=== PATIENT | male | born 1935 | race Caucasian/White ===

== ENCOUNTER 2016-06-20 13:07 | Inpatient (IN) | payer MEDICARE ==
[2016-06-20] VITALS (10 sets, daily range): BP systolic 154–214; BP diastolic 64–95; PULSE 31–54; RESP 15–18; TEMP 97.7–98.2; O2SAT 95–99
[~2016-06-20] VITALS: Ht 180.3 cm; Wt 76.8 kg
[~2016-06-20 13:07] MED LIST: APIX5TAB PO; BACL10TA PO; LIPI10TA PO; LORTA5 PO; MOEX15TA2 PO; PRED20 PO; TERA10CA3 PO
--- NOTE | 2016-06-20 13:10 | PD ---
HPI . near syncope Chief Complaint: dizzness/lightheadedness Time Seen by Provider: 13:10 Travel History International Travel<30 days: No Contact w/Intl Traveler<30days: No Traveled to known affect area: No History of Present Illness HPI 80 year old male with history of hypertension, hyperlipidemia and coronary artery bypass graft in the past here after having a near syncopal episode while walking [place] usual [place] at the beach. Apparently patient was walking and felt sort of dizzy and lightheaded therefore he decided to sit down. Patient denies any loss of consciousness or fall. Patient says he then tried to get back up and was still dizzy, therefore decided to call 911. Unfortunately took about an hour and 20 minutes before the paramedics actually arrived and brought him into the emergency department. He says that once the paramedics told him he complained of double vision, however he does not recall that. He tells me that he does not have any double vision or vision deficits. He is somewhat of a snowbird. He lives in [place] for about 4 months out of the year and then spends most of his time here in [place], while also traveling to [place] occasionally. All of his primary care providers and shot hole shooter are in [place]. He visits his shot hole shooter twice a year. He does have some significant bradycardia on examination, but patient tells me that his heart rate is always in the 30s. Monitor is reading A. fib. Patient denies any arrhythmia in the past. At time of examination patient denies any chest pain, nausea, vomiting, shortness of breath, diaphoresis, abdominal pain, joint pain, weakness or fatigue. He has no complaints and tells me he feels well. He is concerned that he may require pacemaker as his shot hole shooter told him, 'If you ever land yourself in the hospital, you won't leave without a pacemaker." PFSH Past Medical History Heart Rhythm Problems: Yes High Cholesterol: Yes Diminished Hearing: No Hypertension: Yes Past Surgical History Coronary Artery Bypass Graft: Yes (X4) Social History Alcohol Use: Yes (OCC) Tobacco Use: No Substance Use: No Allergies-Medications (Allergen,Severity, Reaction): Coded Allergies: No Known Allergies (Unverified , 07/06/14) Reported Meds & Prescriptions Reported Meds & Active Scripts Active Reported Centravites 50 Plus (Multiple Vitamins W/ Minerals) 1 Tab Tab Amlodipine (Amlodipine Besylate) 5 Mg Tab 5 Mg PO DAILY Lipitor (Atorvastatin Calcium) 20 Mg Tab 20 Mg PO HS Terazosin (Terazosin HCl) 10 Mg Cap 10 Mg PO HS Eliquis (Apixaban) 5 Mg Tab 5 Mg PO DAILY Review of Systems General / Constitutional: No: Fever Eyes: No: Visual changes HENT: No: Headaches Cardiovascular: No: Chest Pain or Discomfort Respiratory: No: Shortness of Breath Gastrointestinal: No: Abdominal Pain Genitourinary: No: Dysuria Musculoskeletal: No: Pain Skin: No Rash Neurologic: No: Weakness Psychiatric: No: Depression Endocrine: No: Polydipsia Hematologic/Lymphatic: No: Easy Bruising Physical Exam Narrative GENERAL: AAO x 3, no acute distress, Well-nourished, well-developed patient. SKIN: Warm and dry. No visible rashes or bruising. HEAD: Normocephalic and atraumatic. EYES: No scleral icterus. No injection or drainage. EOM intact, PERRLA ENT: No nasal drainage noted. Mucous membranes pink. Airway patent. NECK: Supple, trachea midline. No JVD. CARDIOVASCULAR: Significant bradycardia on examination. Audible heart rate in the 30s 32 range. RESPIRATORY: Breath sounds equal bilaterally. No accessory muscle use. No rhonchi or rales. GASTROINTESTINAL: Abdomen soft, non-tender, nondistended. EXTREMITIES: No cyanosis or edema. NEURO: CN 2-12 intact, postal clerk strength normal bilaterally, muscle strength is equal 5/5 UE and LE, speech is normal without any aphasia, BACK: Nontender without obvious deformity. No CVA tenderness. PSYCH: AAO x 3, normal affect. Data Data Last Documented VS Vital Signs Date Time Temp Pulse Resp B/P Pulse Ox O2 Delivery O2 Flow Rate FiO2 06/20/16 13:13 31 97 Room Air 06/20/16 13:09 98.2 17 154/67 Orders Electrocardiogram (06/20/16 ) Complete Blood Count With Diff (06/20/16 13:24) Comprehensive Metabolic Panel (06/20/16 13:24) Creatine Kinase (Cpk) (06/20/16 13:24) Prothrombin Time / Inr (Pt) (06/20/16 13:24) Act Partial Throm Time (Ptt) (06/20/16 13:24) Troponin I (06/20/16 13:24) Urinalysis - C+S If Indicated (06/20/16 13:24) Ct Brain W/O Iv Contrast(Rout) (06/20/16 13:24) Ckmb (Isoenzyme) Profile (06/20/16 13:24) Magnesium (Mg) (06/20/16 13:24) Chest, Single Ap (06/20/16 13:24) Ecg Monitoring (06/20/16 13:24) Bilateral Bp Monitoring (06/20/16 13:24) Iv Access Insert/Monitor (06/20/16 13:24) Oximetry (06/20/16 13:24) Oxygen Administration (06/20/16 13:24) Sodium Chloride 0.9% Flush (Ns Flush) (06/20/16 13:30) CKMB (06/20/16 14:00) CKMB% (06/20/16 14:00) Admit Order (Ed Use Only) (06/20/16 16:13) Place In Observation (06/20/16 ) Diet Regular Basic (06/20/16 Dinner) Activity Bed Rest With Brp (06/20/16 16:14) Vital Signs (Adult) JED.Q4H (06/20/16 16:14) Labs Laboratory Tests Test 06/20/16 14:00 White Blood Count 9.5 TH/MM3 Red Blood Count 4.09 MIL/MM3 Hemoglobin 12.9 GM/DL Hematocrit 39.2 % Mean Corpuscular Volume 96.0 FL Mean Corpuscular Hemoglobin 31.7 PG Mean Corpuscular Hemoglobin 33.0 % Concent Red Cell Distribution Width 14.0 % Platelet Count 98 TH/MM3 Mean Platelet Volume 11.0 FL Neutrophils (%) (Auto) 86.0 % Lymphocytes (%) (Auto) 7.7 % Monocytes (%) (Auto) 5.0 % Eosinophils (%) (Auto) 1.1 % Basophils (%) (Auto) 0.2 % Neutrophils # (Auto) 8.2 TH/MM3 Lymphocytes # (Auto) 0.7 TH/MM3 Monocytes # (Auto) 0.5 TH/MM3 Eosinophils # (Auto) 0.1 TH/MM3 Basophils # (Auto) 0.0 TH/MM3 CBC Comment AUTO DIFF Differential Comment AUTO DIFF CONFIRMED Platelet Estimate LOW Platelet Morphology Comment NORMAL Prothrombin Time 11.3 SEC Prothromb Time International 1.0 RATIO Ratio Activated Partial 24.7 SEC Thromboplast Time Sodium Level 141 MEQ/L Potassium Level 4.3 MEQ/L Chloride Level 106 MEQ/L Carbon Dioxide Level 27.6 MEQ/L Anion Gap 7 MEQ/L Blood Urea Nitrogen 23 MG/DL Creatinine 1.23 MG/DL Estimat Glomerular Filtration 57 ML/MIN Rate Random Glucose 96 MG/DL Calcium Level 9.1 MG/DL Magnesium Level 2.4 MG/DL Total Bilirubin 0.7 MG/DL Aspartate Amino Transf 23 U/L (AST/SGOT) Alanine Aminotransferase 31 U/L (ALT/SGPT) Alkaline Phosphatase 99 U/L Total Creatine Kinase 238 U/L Creatine Kinase MB 2.3 NG/ML Troponin I 0.03 NG/ML Total Protein 7.0 GM/DL Albumin 4.0 GM/DL [facility] Medical Decision Making Medical Screen Exam Complete: Yes Emergency Medical Condition: Yes Medical Record Reviewed: Yes Differential Diagnosis symptomatic bradycardia, a fib, sick sinus syndrome, dehydration, syncopal episode Narrative Course 80 year old male with history of hypertension, hyperlipidemia and coronary artery bypass graft in the past here after having a near syncopal episode while walking [place] usual [place] miles at the beach. Apparently patient was walking and felt sort of dizzy and lightheaded therefore he decided to sit down. Patient denies any loss of consciousness or fall. Patient says he then tried to get back up and was still dizzy, therefore decided to call 911. Unfortunately took about an hour and 20 minutes before the paramedics actually arrived and brought him into the emergency department. He says that once the paramedics told him he complained of double vision, however he does not recall that. He tells me that he does not have any double vision or vision deficits. He is somewhat of a snowbird. He lives in [place] for about 4 months out of the year and then spends most of his time here in [place], while also traveling to [place] occasionally. All of his primary care providers and shot hole shooter are in [place]. He visits his shot hole shooter twice a year. He does have some significant bradycardia on examination, but patient tells me that his heart rate is always in the 30s. Monitor is reading A. fib. Patient denies any arrhythmia in the past. At time of examination patient denies any chest pain, nausea, vomiting, shortness of breath, diaphoresis, abdominal pain, joint pain, weakness or fatigue. He has no complaints and tells me he feels well. He is concerned that he may require pacemaker as his shot hole shooter told him, 'If you ever land yourself in the hospital, you won't leave without a pacemaker." Patient seen and examined. CXR cardiomegaly with old CABG CT brain negative for acute findings. Discussed with patient that since he has bradycardia could possibly be having even a lower heart rate that he will need to be admitted at least for overnight observation. It's possible the patient could have sick sinus syndrome. We'll monitor him overnight and make further discussion pending workup. Patient verbalized understanding of instructions, questions were answered, and thanked me for their care. I advised them if their condition worsens, please return to the nearest emergency room for further care. Diagnosis Primary Impression: Near syncope Admitting Information Admitting Physician Requests: Admit Patient Instructions: General Instructions Condition: Stable Lainey Palacios Jun 20, 2016 13:10
[2016-06-20] MEDS ORDERED: CENT50TA (13:24)
[2016-06-20] MEDS ORDERED: APIX5TAB PO ×2 (13:24→22:27)
[2016-06-20] MEDS ORDERED: AMLO5TAB2 PO (13:24)
[2016-06-20] MEDS ORDERED: LIPI20TA PO (13:24)
[2016-06-20] MEDS ORDERED: TERA10CA3 PO (13:24)
[2016-06-20] MEDS ORDERED: SODIUM CHLORIDE 0.9% FLUSH 5 ML FLUSH IVF PRN (13:30)
--- NOTE | 2016-06-20 14:10 | RADRPT ---
EXAM DATE/TIME: 06/20/2016 13:50 [facility] COMPARISON: No previous studies available for comparison. INDICATIONS : Syncope. MEDICAL HISTORY : Cardiovascular disease. SURGICAL HISTORY : CABG. ENCOUNTER: Initial ACUITY: 1 day PAIN SCORE: 0/10 LOCATION: Bilateral chest FINDINGS: A single view of the chest demonstrates the lungs to be symmetrically aerated without evidence of mas s, infiltrate or effusion. Cardiomegaly and previous CABG. The cardiomediastinal contours are unrema rkable. Osseous structures are intact. CONCLUSION: Cardiomegaly and previous CABG. Andreas Rebolledo MD on June 20, 2016 at 14:08 Board Certified Radiologist. This report was verified electronically.
[2016-06-20 14:13] LABS: AUTOMATED NEUTROPHIL # 8.2 TH/MM3 (1.8-7.7); BASOPHIL % 0.2 % (0.0-2.0); EOSINOPHIL # 0.1 TH/MM3 (0-0.4); EOSINOPHIL % 1.1 % (0.0-4.0); HEMATOCRIT 39.2 % (39.0-51.0); LYMPH % 7.7 % (9.0-44.0); LYMPHOCYTE # 0.7 TH/MM3 (1.0-4.8); MEAN CORPUSCULAR HEMOGLOBIN 31.7 PG (27.0-34.0); PLATELET COUNT 98 TH/MM3 (150-450); RED BLOOD COUNT 4.09 MIL/MM3 (4.50-5.90); WHITE BLOOD COUNT 9.5 TH/MM3 (4.0-11.0)
[2016-06-20 14:15] LABS: HEMO FLAGS AUTO DIFF
[2016-06-20 14:23] LABS: APTT (PATIENT) 24.7 SEC (24.3-30.1); PROTHROMBIN TIME - PATIENT 11.3 SEC (9.8-11.6)
[2016-06-20 14:35] LABS: ALT (GPT) 31 U/L (12-78); ANION GAP 7 MEQ/L (5-15); AST (GOT) 23 U/L (15-37); BICARBONATE 27.6 MEQ/L (21.0-32.0); BLOOD UREA NITROGEN 23 MG/DL (7-18); CHLORIDE 106 MEQ/L (98-107); GLOMERULAR FILTRATION RATE 57 ML/MIN (>89); MAGNESIUM 2.4 MG/DL (1.5-2.5); POTASSIUM 4.3 MEQ/L (3.5-5.1); SODIUM (NA) 141 MEQ/L (136-145)
[2016-06-20 14:38] LABS: ALKALINE PHOSPHATASE 99 U/L (45-117); CREATINE KINASE 238 U/L (39-308); TOTAL BILIRUBIN ADULT 0.7 MG/DL (0.2-1.0)
[2016-06-20 14:48] LABS: PLATELET ESTIMATE SMEAR LOW (NORMAL); PLATELET MORPHOLOGY NORMAL (NORMAL); SCAN/DIFF AUTO DIFF CONFIRMED
[2016-06-20 14:50] LABS: CKMB 2.3 NG/ML (0.5-3.6)
--- NOTE | 2016-06-20 14:51 | RADRPT ---
EXAM DATE/TIME: 06/20/2016 14:43 [facility] COMPARISON: No previous studies available for comparison. INDICATIONS : Weakness and dizziness RADIATION DOSE: 39.04 CTDIvol (mGy) MEDICAL HISTORY : Hypertension. SURGICAL HISTORY : CABG ENCOUNTER: Initial ACUITY: 1 day PAIN SCALE: 0/10 LOCATION: cranial TECHNIQUE: Multiple contiguous axial images were obtained of the head. Using automated exposure control and adj ustment of the mA and/or kV according to patient size, radiation dose was kept as low as reasonably a chievable to obtain optimal diagnostic quality images. FINDINGS: CEREBRUM: The ventricles are normal for age. No evidence of midline shift, mass lesion, hemorrhage or acute in farction. No extra-axial fluid collections are seen. POSTERIOR FOSSA: The cerebellum and brainstem are intact. The 4th ventricle is midline. The cerebellopontine angle i s unremarkable. EXTRACRANIAL: The visualized portion of the orbits is intact. SKULL: The calvaria is intact. No evidence of skull fracture. CONCLUSION: Negative for an acute process.. Addi Zaldivar MD FACR on June 20, 2016 at 14:49 Board Certified Radiologist. This report was verified electronically.
[2016-06-20] MEDS ORDERED: SODIUM CHLORIDE 0.9% FLUSH 5 ML FLUSH FLUSH PRN (17:00)
[2016-06-20] MEDS ORDERED: ONDANSETRON HCL 4 MG/2 ML VIAL IVP PRN (17:00)
[2016-06-20] MEDS ORDERED: ACETAMINOPHEN 325 MG TAB PO PRN (17:00)
[2016-06-20] MEDS ORDERED: NALOXONE HCL 0.4 MG/ML AMP IV PRN (17:00)
--- NOTE | 2016-06-20 17:12 | HHI.HP ---
[facility] No Primary Care Physician Admission Diagnosis near syncope, Bradycardia Diagnoses: Chief Complaint: Near syncopal episode Travel History International Travel<30 Days: No Contact w/Intl Traveler <30 Da: No Traveled to Known Affected Are: No History of Present Illness This is a pleasant 80-year-old gentleman with a past medical history which includes hypertension, bradycardia, hyperlipidemia, CAD status post coronary artery bypass graft, BPH. EKG in the emergency department reveals atrial fibrillation rate in the 30s. Patient doesn't recall having atrial fibrillation before but reports his cpc coder started him on Eliquis for prevention of blood clots. Patient reports he is in his normal state of health he was walking on the beach his normal 6-8 miles every day about 4 miles and he became dizzy and lightheaded had to sit down. Patient reports he stood up and felt continued to feel dizzy therefore he called 911 to be transported to the emergency department for further evaluation and treatment. Patient reports while he was waiting for the ambulance to arrive he began to have double vision. Patient reports that when he closes one eye the double vision goes away. Patient reports that dizziness have improved with the double vision is still present. Patient reports the double vision is worse with worse with images faraway. Patient reports sinus and this episode he did not feel any shortness of breath chest pain nausea vomiting diarrhea constipation fevers chills or diaphoresis. Patient reports no facial asymmetry confusion a slurred speech loss of bowel or bladder control. Review of Systems Except as stated in HPI: all other systems reviewed are Neg Past Family Social History Past Medical History hypertension, bradycardia, hyperlipidemia, CAD status post coronary artery bypass graft, BPH. Past Surgical History CABG Reported Medications Aspirin 81 mg daily Centravites 50 Plus (Multiple Vitamins W/ Minerals) 1 Tab Tab Amlodipine (Amlodipine Besylate) 5 Mg Tab 5 Mg PO DAILY Lipitor (Atorvastatin Calcium) 20 Mg Tab 20 Mg PO HS Terazosin (Terazosin HCl) 10 Mg Cap 10 Mg PO HS Eliquis (Apixaban) 5 Mg Tab 5 Mg PO DAILY Allergies: Coded Allergies: No Known Allergies (Unverified , 07/06/14) Active Ordered Medications Current Medications Medications (Trade) Dose Ordered Sig/Magdaleno Route Start Time Stop Time Status Last Admin IV Flush 2 ml 2 ml UNSCH PRN IVF 06/20/16 13:30 06/20/16 15:41 (NS 1000 ml Inj) 1,000 ml @ 75 mls/hr [id number] IV 06/20/16 16:48 UNV (NS Flush) 2 ml UNSCH PRN FLUSH 06/20/16 17:00 UNV (NS Flush) 2 ml BID FLUSH 06/20/16 21:00 UNV (Tylenol) 650 mg Q4H PRN PO 06/20/16 17:00 UNV Family History Patient's father at 54 secondary to lung cancer was a smoker Patient's mother at 79 he believes she had, "some heart problems" Social History Patient has a distant tobacco use history quit smoking in 1968 Physical Exam Vital Signs Vital Signs Date Time Temp Pulse Resp B/P Pulse Ox O2 Delivery O2 Flow Rate FiO2 06/20/16 13:13 31 97 Room Air 06/20/16 13:09 98.2 31 17 154/67 95 Physical Exam GENERAL: This is a well-nourished, well-developed patient, in no apparent distress. SKIN: red ramirez leathery skin HEAD: Atraumatic. Normocephalic. No temporal or scalp tenderness. EYES: Pupils equal round and reactive. Extraocular motions intact. No scleral icterus. No injection or drainage. CARDIOVASCULAR: Bradycardic and irregular RESPIRATORY: Clear to auscultation. Breath sounds equal bilaterally. No wheezes , rales, or rhonchi. GASTROINTESTINAL: Abdomen soft, non-tender, nondistended. No guarding. MUSCULOSKELETAL: Extremities without clubbing, cyanosis, or edema. No joint tenderness, effusion, or edema noted. No calf tenderness. Negative Homans sign bilaterally. NEUROLOGICAL: Awake and alert. Motor and sensory grossly within normal limits. Five out of 5 muscle strength in all muscle groups. Normal speech. Laboratory Laboratory Tests Test 06/20/16 14:00 White Blood Count 9.5 Red Blood Count 4.09 Hemoglobin 12.9 Hematocrit 39.2 Mean Corpuscular Volume 96.0 Mean Corpuscular Hemoglobin 31.7 Mean Corpuscular Hemoglobin 33.0 Concent Red Cell Distribution Width 14.0 Platelet Count 98 Mean Platelet Volume 11.0 Neutrophils (%) (Auto) 86.0 Lymphocytes (%) (Auto) 7.7 Monocytes (%) (Auto) 5.0 Eosinophils (%) (Auto) 1.1 Basophils (%) (Auto) 0.2 Neutrophils # (Auto) 8.2 Lymphocytes # (Auto) 0.7 Monocytes # (Auto) 0.5 Eosinophils # (Auto) 0.1 Basophils # (Auto) 0.0 CBC Comment AUTO DIFF Differential Comment AUTO DIFF CONFIRMED Platelet Estimate LOW Platelet Morphology Comment NORMAL Prothrombin Time 11.3 Prothromb Time International 1.0 Ratio Activated Partial 24.7 Thromboplast Time Sodium Level 141 Potassium Level 4.3 Chloride Level 106 Carbon Dioxide Level 27.6 Anion Gap 7 Blood Urea Nitrogen 23 Creatinine 1.23 Estimat Glomerular Filtration 57 Rate Random Glucose 96 Calcium Level 9.1 Magnesium Level 2.4 Total Bilirubin 0.7 Aspartate Amino Transf 23 (AST/SGOT) Alanine Aminotransferase 31 (ALT/SGPT) Alkaline Phosphatase 99 Total Creatine Kinase 238 Creatine Kinase MB 2.3 Troponin I 0.03 Total Protein 7.0 Albumin 4.0 Result Diagram: 06/20/16 1400 06/20/16 1400 Imaging Last Impressions Head CT 06/20/16 1324 Signed Impressions: Service Date/Time: Monday, June 20, 2016 14:43 - CONCLUSION: Negative for an acute process.. Addi Zaldivar MD FACR Chest X-Ray 06/20/164 Signed Impressions: Service Date/Time: Monday, June 20, 2016 13:50 - CONCLUSION: Cardiomegaly and previous CABG. Andreas Rebolledo MD Assessment and Plan Problem List: (1) Near syncope ICD Code: R55 Status: Acute (2) A-fib ICD Code: I48.91 Status: Chronic (3) CAD (coronary artery disease) ICD Code: I25.10 Status: Chronic (4) Hyperlipidemia ICD Code: E78.5 Status: Chronic (5) HTN (hypertension) ICD Code: I10 Status: Chronic Assessment and Plan This is a pleasant 80-year-old gentleman with a past medical history which includes hypertension, bradycardia, hyperlipidemia, CAD status post coronary artery bypass graft, BPH. Patient reports he is in his normal state of health he was walking on the beach his normal 6-8 miles every day about 4 miles and he became dizzy and lightheaded had to sit down. Patient reports he stood up and felt continued to feel dizzy therefore he called 911 to be transported to the emergency department for further evaluation and treatment. Patient reports while he was waiting for the ambulance to arrive he began to have double vision. Patient reports that when he closes one eye the double vision goes away. Near syncopal episode with dizziness, bradycardia and double vision: TIA versus CVA versus symptomatic bradycardia EKG personally reviewed by myself reveals atrial fibrillation with ventricular rate in the 30s Ultrasound bilateral carotid arteries pending CT of the head reviewed and negative for an acute process MRI brain pending Head of bed flat bedrest Check orthostatic vital signs 1 Continuous telemetry monitoring Echocardiogram ordered and pending Lipid panel, TSH, hemoglobin A1c pending Continue patient's atorvastatin aspirin and Eliquis Consult cardiology- patient has cpc coder in [place] but does not have a cpc coder in [place] Hypertension with bradycardia Will hold patient's Norvasc and Terazosin Allow permissive hypertension at this time History of CAD with CABG Hyperlipidemia continue patient's aspirin and Lipitor DVT prophylaxis patient is on Eliquis Discussed plan of care with the ER provider, nursing, patient and Dr. Rolon Attending Statement 80 years old right handed male came in with syncopal episode and on exam with bradycardia- on exam- irregular rhtyhm neuro exam unremarkable, still with occasional double vision elevated BPs, states history of bradycardia 40s lungs clear, no leg swelling + bruit left carotid Atrial fibrillation in slow ventricular rate- 30-40s Symptomatic bradycardia History of CAD Cardiology ff. plan for PM. get Echo. Near syncopal episode- work up in progress Left carotid bruit on exam carotid MRA Hypertensive urgency TIA Continue on patient amlodipine 5 mg daily. Hold Terazosin. check orthostatics prn IV Vasotec with BP greater than 180/90 no BB, clonidine due to bradycardia Acute Kidney Injury started on IVF continue all other meds The exam, history, and the medical decision-making described in the above note were completed with the assistance of the mid-level provider. I reviewed and agree with the findings presented. I attest that I had a [id number] encounter with the patient on the same day, and personally performed and documented my assessment and findings in the medical record. Didi Oleary Jun 20, 2016 17:11 Coreen Rolon MD Jun 20, 2016 20:04
[2016-06-20 17:18] LABS: BLOOD, URINE NEG (NEG); GLUCOSE,URINE NEG (NEG); HYALINE CAST, URINE 1 /lpf (RARE); KETONE, URINE 10 mg/dL (NEG); MUCUS URINE FEW /lpf (OCC); NITRITE,URINE NEG (NEG); SQUAMOUS EPITHELIAL CELL URINE <1 /hpf (0-5); URINE COLOR YELLOW (YELLW/STRAW)
[2016-06-20 17:19] LABS: COMMENT (UR) CATH-CULT NOT IND; CULTURE IF INDICATED CATH CULTURE NOT IND
[2016-06-20] MEDS: SODIUM CHLOR 0.9% 1000 ML INJ 1,000 ML IV SCH (18:01)
[2016-06-20] MEDS ORDERED: GADODIAMIDE PF 287 MG/ML 5 ML VIAL (for RAD MRI) IV ONE (18:35)
--- NOTE | 2016-06-20 19:20 | RADRPT ---
EXAM DATE/TIME: 06/20/2016 18:15 [facility] COMPARISON: No previous studies available for comparison. INDICATIONS : Near Syncope episode. CONTRAST: 15 cc Omniscan (gadodiamide) IV MEDICAL HISTORY : Bradycardia. SURGICAL HISTORY : CABG ENCOUNTER: Initial ACUITY: 1 day PAIN SCORE: 0/10 LOCATION: cranial TECHNIQUE: Multiplanar, multisequence MRI of the brain was performed both prior to and following the administrat ion of paramagnetic contrast. FINDINGS: CEREBRUM: The ventricles are normal for age. No evidence of midline shift, mass lesion, hemorrhage or acute in farction. No extraaxial fluid collections are seen. The pituitary gland and suprasellar cistern are normal in configuration. WHITE MATTER: No significant signal abnormalities are seen in the white matter. POSTERIOR FOSSA: The cerebellum and brainstem are intact. The 4th ventricle is midline. The cerebellopontine angle is unremarkable. The cerebellar tonsils are normal in position. DIFFUSION IMAGING: No focal areas of restricted diffusion are seen. No evidence of acute infarction. EXTRACRANIAL: The visualized portions of the orbits and paranasal sinuses are unremarkable. POST-CONTRAST: No abnormal areas of parenchymal or dural enhancement. No evidence of blood-brain barrier breakdown. CONCLUSION: Unremarkable exam. No evidence of acute infarct, hemorrhage, mass, edema or enhancing lesions. Pasha Thakkar MD on June 20, 2016 at 19:17 Board Certified Radiologist. This report was verified electronically.
[2016-06-20 19:50] LABS: HDL CHOLESTEROL 65.4 MG/DL (40.0-60.0)
--- NOTE | 2016-06-20 20:17 | RADRPT ---
EXAM DATE/TIME: 06/20/2016 18:48 [facility] COMPARISON: No previous studies available for comparison. INDICATIONS : Syncope. MEDICAL HISTORY : Hypertension. Hypercholesterolemia. SURGICAL HISTORY : CABG. ENCOUNTER: Initial ACUITY: 1 day PAIN SCORE: 0/10 LOCATION: Bilateral neck PEAK SYSTOLIC VELOCITIES (cm/sec): ICA/CCA RATIO: Right: 1.5 Left: 0.9 ICA: Right: 114 Left: 77 CCA: Right: 78 Left: 86 ECA: Right: 160 Left: 139 VERTEBRAL: Right: 82 antegrade Left: 38 antegrade Elevated flow velocities and ICA/CCA ratios have been found to correlate with increased degrees of vessel stenosis, calculated as percentage of diameter relative to a normal segment of distal ICA/CCA FINDINGS: RIGHT CAROTID: Significant calcified and noncalcified plaque is identified in the carotid bifurcation. Doppler evalu ation failed to reveal any significant velocity elevation. LEFT CAROTID: Significant calcified and noncalcified plaque is identified in the carotid bifurcation. Proper evalua tion failed to reveal any significant velocity elevation. VERTEBRAL ARTERIES: Antegrade flow is seen in both vertebral arteries. MISCELLANEOUS: None. CONCLUSION: Significant calcified and noncalcified plaque involving the carotid bifurcations. No Doppler evidence of significant stenosis however do to the amount of plaque further evaluation wit h CTA or MRA may be of benefit if there is high clinical suspicion of carotid stenosis. Antegrade flow the vertebral arteries. Pasha Thakkar MD on June 20, 2016 at 20:12 Board Certified Radiologist. This report was verified electronically.
[2016-06-20] MEDS ORDERED: LISI20TA3 PO (20:25)
[2016-06-20] MEDS ORDERED: GLUC1CAP14 PO (20:25)
[2016-06-20] MEDS ORDERED: ASPI81CH CHEW (20:25)
[2016-06-20] MEDS ORDERED: RESV1CAP2 PO (20:25)
[2016-06-20] MEDS: SODIUM CHLORIDE 0.9% FLUSH 5 ML FLUSH FLUSH SCH (21:00)
[2016-06-20] MEDS ORDERED: GADODIAMIDE PF 287 MG/ML 20 ML VIAL (for RAD MRI) IV ONE (21:23)
[2016-06-20] MEDS: APIXABAN 5 MG TABLET PO SCH (22:19)
[2016-06-20] MEDS: ATORVASTATIN 20 MG TAB PO SCH (22:19)
[2016-06-20 22:23] LABS: HEMOGLOBIN A1a 1.1 %; HEMOGLOBIN A1b 1.6 %; HEMOGLOBIN Ao 84.6 %; HEMOGLOBIN LA1C 2.2 %; HEMOGLOBIN P3 4.3 %
--- NOTE | 2016-06-20 22:23 | RADRPT ---
EXAM DATE/TIME: 06/20/2016 21:13 [place] COMPARISON: No previous studies available for comparison. INDICATIONS : Stenosis. CONTRAST: 20 cc Omniscan (gadodiamide) IV MEDICAL HISTORY : None. SURGICAL HISTORY : CABG ENCOUNTER: Initial ACUITY: 1 day PAIN SCORE: 0/10 LOCATION: distal Percent stenosis is calculated using the diameter of the stenotic region over the diameter of the nor mal distal internal carotid artery. TECHNIQUE: Bolus infused MRA of the extracranial circulation was performed using a neurovascular coil. Post pro cessing was performed including rotationg subvolume maximum intensity projections of each carotid art vanessa, rotating full volume maximum intensity projections of both carotid arteries, sagittal and bolivar l sliding thin slab reformations of each carotid artery, and left oblique sliding thin slab reformati on through the aortic arch to include the origin of the arch branch vessels. FINDINGS: AORTIC ARCH: There is a three vessel origin of the great vessels from the aorta. No evidence of ostial narrowing. RIGHT CAROTID: Significant plaque is identified at the origin of the right internal carotid artery. Degree of stenos is is moderately severe in the 50-69% range. The right common and cervical portion of the internal ca rotid arteries are otherwise unremarkable. LEFT CAROTID: The common carotid artery is intact. The carotid bulb has a normal configuration without ulceration or narrowing. The internal carotid artery lumen is smooth without stenosis. The external carotid ar herb is intact. VERTEBRALS: The vertebral arteries are asymmetric in diameter with the right being dominant. There are no proxima l stenotic lesions. CONCLUSION: Significant plaque in the right carotid bifurcation with moderate to severe stenosis in the proximal ICA measuring in the 50-69% range. Dominant right vertebral artery. No other significant abnormality. Pasha Thakkar MD on June 20, 2016 at 22:18 Board Certified Radiologist. This report was verified electronically.
[2016-06-21] VITALS (8 sets, daily range): BP systolic 130–172; BP diastolic 66–80; PULSE 27–48; RESP 16–18; TEMP 97–98; O2SAT 95–98
[2016-06-21] MEDS: SODIUM CHLOR 0.9% 1000 ML INJ 1,000 ML IV SCH (07:08)
--- NOTE | 2016-06-21 07:19 | MB ---
cc: SONIDO MALDONADO DATE OF CONSULTATION: 06/20/2016 HISTORY OF PRESENT ILLNESS Mr. Velasquez is an 80-year-old white male with a history of hypertension, bradycardia, dyslipidemia, coronary artery disease and coronary bypass. [place] the [place] and developed dizziness, lightheadedness, shortness of breath and generalized weakness. He called EMS. He was brought to the emergency room. He also reports double vision. He denies any chest pain. 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 PAST MEDICAL HISTORY 1. Coronary artery disease. 2. Coronary artery bypass. 3. Bradycardia. 4. Hypertension. 5. Dyslipidemia. 6. BPH. MEDICATIONS 1. Aspirin. 2. Centavite. 3. Amlodipine. 4. Lipitor. 5. Terazosin. 6. Eliquis. ALLERGIES None. SOCIAL HISTORY The patient does not smoke. He does not drink alcohol. FAMILY HISTORY Positive for heart disease in his mother. REVIEW OF SYSTEMS Otherwise negative. PHYSICAL EXAMINATION VITAL SIGNS: Blood pressure 194/78, pulse 31 and irregular. HEENT: Negative. NECK: 2+ carotid upstrokes. No bruits. LUNGS: Clear. HEART: Irregular, bradycardic, with no murmur or gallop. ABDOMEN: Soft. No bruit. EXTREMITIES: Without edema. 2+ distal pulses. NEUROLOGIC: Grossly nonfocal. EKG EKG was reviewed and showed atrial fibrillation with slow ventricular response at a rate of 34 beats per minute, borderline left axis, right bundle branch block. LABORATORY Hemoglobin 12.9. Potassium 4.3, creatinine 1.2. AST and ALT normal. CK 238, CK-MB 2.3. Troponin 0.03. DIAGNOSIS 1. Near-syncope. 2. Atrial fibrillation with slow ventricular response. 3. Coronary artery disease, history of coronary bypass. 4. Hypertension. 5. Dyslipidemia. 6. Diplopia. DISPOSITION Mr. Velasquez will be monitored on telemetry. We will obtain an echocardiogram to evaluate his left ventricular function. He will undergo neurologic evaluation. We will continue anticoagulation with Eliquis. He may require pacemaker placement if his heart rate stays low. I will follow him for cardiology during his hospitalization. MD MARLY Jarvis/MICHELLE /7:12 PM /7:04 AM [email or web address]
[2016-06-21] MEDS: ASPIRIN EC 81 MG TABEC PO SCH (07:55)
[2016-06-21] MEDS: APIXABAN 5 MG TABLET PO SCH ×2 (07:55→21:28)
[2016-06-21] MEDS: SODIUM CHLORIDE 0.9% FLUSH 5 ML FLUSH FLUSH SCH ×2 (07:55→21:00)
[2016-06-21] MEDS ORDERED: APIXABAN 5 MG TABLET PO SCH (09:00)
[2016-06-21 10:22] LABS: AUTOMATED NEUTROPHIL # 3.6 TH/MM3 (1.8-7.7); BASOPHIL % 0.2 % (0.0-2.0); EOSINOPHIL # 0.1 TH/MM3 (0-0.4); EOSINOPHIL % 1.8 % (0.0-4.0); HEMATOCRIT 40.3 % (39.0-51.0); LYMPH % 18.7 % (9.0-44.0); MEAN CELL VOLUME 96.1 FL (80.0-100.0); MEAN CORPUSCULAR HEMOGLOBIN 31.7 PG (27.0-34.0); MONO % 8.4 % (0.0-8.0); NEUT % 70.9 % (16.0-70.0); PLATELET COUNT 98 TH/MM3 (150-450); RED CELL DISTRIBUTION WIDTH 13.4 % (11.6-17.2); WHITE BLOOD COUNT 5.1 TH/MM3 (4.0-11.0)
[2016-06-21 10:23] LABS: HEMO FLAGS AUTO DIFF
--- NOTE | 2016-06-21 10:32 | HHI.PR ---
Subjective Remarks no complains blurring of vision improved no nausea or vomiting voiding spontaneously Objective Vitals Vital Signs Date Time Temp Pulse Resp B/P Pulse Ox O2 Delivery O2 Flow Rate FiO2 06/21/16 07:39 Room Air 06/21/16 07:39 30 06/21/16 07:25 96 21 06/21/16 04:00 97.7 27 16 158/66 97 06/21/16 04:00 Room Air 06/21/16 00:00 97.3 34 18 164/78 95 06/21/16 00:00 Room Air 06/20/16 23:50 97 21 06/20/16 22:42 32 06/20/16 22:29 178/72 06/20/16 22:29 Room Air 06/20/16 21:29 97.7 42 18 180/68 97 06/20/16 20:25 54 16 204/81 99 Room Air 06/20/16 19:35 40 15 214/89 99 Room Air 06/20/16 19:32 47 15 98 Room Air 06/20/16 18:12 194/78 06/20/16 15:16 97 Room Air 06/20/16 15:13 31 197/95 179/87 06/20/16 15:13 99 Room Air 06/20/16 15:13 178/64 06/20/16 13:13 31 97 Room Air 06/20/16 13:09 98.2 31 17 154/67 95 I/O 06/20/16 06/20/16 06/20/16 06/21/16 06/21/16 06/21/16 07:00 15:00 23:00 07:00 15:00 23:00 Intake Total 403 ml 696 ml Output Total 650 ml 450 ml Balance -247 ml 246 ml Intake Oral 240 ml 0 ml IV Total 163 ml 696 ml Output Urine Total 650 ml 450 ml # Bowel Movements 0 0 Result Diagram: 06/21/16 0940 06/20/16 1400 Imaging Last Impressions Head CT 06/20/16 1324 Signed Impressions: Service Date/Time: Monday, June 20, 2016 14:43 - CONCLUSION: Negative for an acute process.. Addi Zaldivar MD FACR Chest X-Ray 06/20/16 1324 Signed Impressions: Service Date/Time: Monday, June 20, 2016 13:50 - CONCLUSION: Cardiomegaly and previous CABG. Andreas Rebolledo MD Neck Magnetic Resonance Angiography 06/20/16 Signed Impressions: Service Date/Time: Monday, June 20, 2016 21:13 - CONCLUSION: Significant plaque in the right carotid bifurcation with moderate to severe stenosis in the proximal ICA measuring in the 50-69%% range. Dominant right vertebral artery. No other significant abnormality. Pasha Thakkar MD Carotid Artery Ultrasound 06/20/16 Signed Impressions: Service Date/Time: Monday, June 20, 2016 18:48 - CONCLUSION: Significant calcified and noncalcified plaque involving the carotid bifurcations. No Doppler evidence of significant stenosis however do to the amount of plaque further evaluation with CTA or MRA may be of benefit if there is high clinical suspicion of carotid stenosis. Antegrade flow the vertebral arteries. Pasha Thakkar MD Brain MRI 06/20/16 Signed Impressions: Service Date/Time: Monday, June 20, 2016 18:15 - CONCLUSION: Unremarkable exam. No evidence of acute infarct, hemorrhage, mass, edema or enhancing lesions. Pasha Thakkar MD Objective Remarks anicteric left carotid bruit lungs clear irregular rhythm, rate 40s abdomen soft, nontender extremities no edema neuroexam- unremarkable A/P Problem List: (1) Near syncope ICD Code: R55 Status: Acute (2) A-fib ICD Code: I48.91 Status: Chronic (3) CAD (coronary artery disease) ICD Code: I25.10 Status: Chronic (4) Hyperlipidemia ICD Code: E78.5 Status: Chronic (5) HTN (hypertension) ICD Code: I10 Status: Chronic Assessment and Plan Atrial fibrillation in slow ventricular rate- 30-40s Symptomatic bradycardia Cardiology ff. plan for possible PM. echo pending. On eliquis Right carotid stenosis vascular surgery consult for evaluation Near syncopal episode- work up in progress Hypertensive urgency- Start t amlodipine 5 mg daily. Hold Terazosin. check orthostatics prn IV Vasotec with BP greater than 180/90 no BB, clonidine due to bradycardia Acute Kidney Injury started on IVF. recheck Coreen Cuevas MD Jun 21, 2016 10:31
[2016-06-21 10:47] LABS: BICARBONATE 26.9 MEQ/L (21.0-32.0)
[2016-06-21 10:53] LABS: POTASSIUM 4.3 MEQ/L (3.5-5.1)
[2016-06-21] MEDS: amLODIPine BESYLATE 5 MG TAB PO SCH (11:02)
[2016-06-21 11:06] LABS: PLATELET ESTIMATE SMEAR LOW (NORMAL); PLATELET MORPHOLOGY ENLARGED (NORMAL); SCAN/DIFF AUTO DIFF CONFIRMED
--- NOTE | 2016-06-21 16:25 | EKG ---
Date Performed: 06/20/2016 Time Performed: 13:20:27 PTAGE: 80 years EKG: ATRIAL FIBRILLATION WITH SLOW VENTRICULAR RESPONSE BORDERLINE LEFT AXIS DEVIATION RIGHT BUN DLE BRANCH BLOCK Clinical correlation is recommended ABNORMAL ECG NO PREVIOUS TRACING DOCTOR: Juan Hernandez Interpretating Date/Time 06/21/2016 16:23:24
--- NOTE | 2016-06-21 18:33 | MB ---
cc: JONE ROSLAES DATE OF CONSULTATION 06/21/2016 REASON FOR CONSULTATION Right internal carotid artery stenosis, transient ischemic attack HISTORY OF PRESENT ILLNESS This pleasant 80-year-old gentleman who is extremely active appears much younger than his actual age was walking on the beats, developed dizziness, lightheadedness and could not control his left leg. He called EMS, did know where he was, also reports double vision. The patient had no chest pain. No other problems, had no weakness in the arm, however, as noted could not control his left leg. This resolved about an hour later. The patient is now in process of workup. Question arises about any vascular implications of his findings. PAST SURGICAL HISTORY Coronary artery bypass surgery about 12 years ago PAST MEDICAL HISTORY 1. coronary artery disease, 2. Sinus bradycardia with underlying atrial fibrillation and slow ventricular response 3. Hypertension, 4. Dyslipidemia MEDICATIONS The patient's medications can be found on the record including Eliquis. ALLERGIES No allergies. SOCIAL HISTORY The patient does smoke, does not drink. He is extremely active and appears much younger than 80 years of age. The patient worked most of his career for [employer] in [place]. PHYSICAL EXAMINATION GENERAL: A pleasant 80-year-old gentleman. HEENT: Normocephalic. No trauma to the head. Pupils equally reactive. Extraocular muscles intact. No hemotympanum. No Mendez's sign. Sclerae are nonicteric. Oral cavity is intact. NECK: Bilateral carotid pulses with prominent jugular veins but no bruits. CHEST: Clear, bilateral breath sounds. HEART: Actually sounds like a regular rhythm with sinus bradycardia about 50 and just on palpation of the pulse it would be hard to tell that patient has an overlying chronic atrial fibrillation. ABDOMEN: Soft. Active bowel sounds. No rebound or guarding. No masses. EXTREMITIES: The patient has palpable femoral, popliteal, dorsalis pedis and posterior tibial pulses which are strong. Capillary refill is normal. NEUROLOGIC: Completely normal. The patient's [place] has coma scale of 15. No lateralization, equal motoric strength and sensory preservation. IMPRESSION/RECOMMENDATIONS I reviewed laboratory and diagnostic procedures. This gentleman had a syncopal episode and it is very hard to tell where it is coming from. Most likely it is heart related. Perhaps the patient developed more profound bradycardia. On the other hand, it seems to be a lateralizing event so, hence, the slight confusion. On the other hand, the patient has a clear finding of about 70% right internal carotid artery stenosis. I reviewed the study myself and I think it might be actually a little higher degree of narrowing. Question now arises if this is an asymptomatic stenosis or not. At this point, I believe it is irrelevant. The patient is in a very good physical shape. Cardiac workup takes precedence and I would allow Dr. Pina to do whatever needs to be done for the heart. In this particular situation, this patient might benefit from pacemaker placement but I would leave that up to cardiology. Once the heart is handled, I believe in face of 70% carotid artery stenosis and even questionable symptoms, the patient all things equal should be offered right carotid endarterectomy. Therefore, my plan is to allow cardiology to finish the workup on the patient, any diagnostic or therapeutic procedure that might be needed and then I intend to proceed with carotid endarterectomy. Thank you very much for referral. Brielle HU /5:50 PM /6:15 PM
--- NOTE | 2016-06-21 18:40 | PD.CARD.PN ---
Subjective Subjective Remarks No CP, SOB, or dizziness. Diplopia improved. Objective Medications Current Medications Medications (Trade) Dose Ordered Sig/Mgadaleno Route Start Time Stop Time Status Last Admin (NS 1000 ml Inj) 1,000 ml @ 75 mls/hr [id number] IV 06/20/16 16:48 06/21/16 07:08 (NS Flush) 2 ml UNSCH PRN FLUSH 06/20/16 17:00 (NS Flush) 2 ml BID FLUSH 06/20/16 21:00 (Tylenol) 650 mg Q4H PRN PO 06/20/16 17:00 (Zofran Inj) 4 mg Q6H PRN IVP 06/20/16 17:00 (Narcan Inj) 0.4 mg UNSCH PRN IV 06/20/16 17:00 (Lipitor) 20 mg HS PO 06/20/16 21:00 06/20/16 22:19 (Ecotrin Ec) 81 mg DAILY PO 06/21/16 09:00 06/21/16 07:55 (Vasotec Inj) 1.25 mg Q8H PRN IV PUSH 06/20/16 20:45 (Eliquis) 5 mg BID PO 06/20/16 22:05 06/21/16 07:55 (Norvasc) 5 mg DAILY PO 06/21/16 11:00 06/21/16 11:02 Vital Signs / I&O Vital Signs Date Time Temp Pulse Resp B/P Pulse Ox O2 Delivery O2 Flow Rate FiO2 06/21/16 16:00 97.3 48 18 140/75 97 06/21/16 12:00 97.0 38 18 130/70 97 06/21/16 08:00 97.4 36 18 167/80 98 06/21/16 07:39 Room Air 06/21/16 07:39 30 06/21/16 07:25 96 21 06/21/16 04:00 97.7 27 16 158/66 97 06/21/16 04:00 Room Air 06/21/16 00:00 97.3 34 18 164/78 95 06/21/16 00:00 Room Air 06/20/16 23:50 97 21 06/20/16 22:42 32 06/20/16 22:29 178/72 06/20/16 22:29 Room Air 06/20/16 21:29 97.7 42 18 180/68 97 06/20/16 20:25 54 16 204/81 99 Room Air 06/20/16 19:35 40 15 214/89 99 Room Air 06/20/16 19:32 47 15 98 Room Air I/O 06/20/16 06/20/16 06/20/16 06/21/16 06/21/16 06/21/16 07:00 15:00 23:00 07:00 15:00 23:00 Intake Total 403 ml 696 ml 834 ml Output Total 650 ml 450 ml 600 ml Balance -247 ml 246 ml 234 ml Intake Oral 240 ml 0 ml 480 ml IV Total 163 ml 696 ml 354 ml Output Urine Total 650 ml 450 ml 600 ml # Bowel Movements 0 0 1 Physical Exam GENERAL:In NAD SKIN: Warm and dry. HEAD: Normocephalic. EYES: No scleral icterus. No injection or drainage. NECK: Supple, trachea midline. No JVD or lymphadenopathy. CARDIOVASCULAR: Irregular, without murmurs, gallops, or rubs. RESPIRATORY: Breath sounds equal bilaterally. No accessory muscle use. GASTROINTESTINAL: Abdomen soft, non-tender, nondistended. MUSCULOSKELETAL: No cyanosis, or edema. Laboratory Laboratory Tests Test 06/21/16 09:40 White Blood Count 5.1 TH/MM3 Red Blood Count 4.20 MIL/MM3 Hemoglobin 13.3 GM/DL Hematocrit 40.3 % Mean Corpuscular Volume 96.1 FL Mean Corpuscular Hemoglobin 31.7 PG Mean Corpuscular Hemoglobin 33.0 % Concent Red Cell Distribution Width 13.4 % Platelet Count 98 TH/MM3 Mean Platelet Volume 11.3 FL Neutrophils (%) (Auto) 70.9 % Lymphocytes (%) (Auto) 18.7 % Monocytes (%) (Auto) 8.4 % Eosinophils (%) (Auto) 1.8 % Basophils (%) (Auto) 0.2 % Neutrophils # (Auto) 3.6 TH/MM3 Lymphocytes # (Auto) 1.0 TH/MM3 Monocytes # (Auto) 0.4 TH/MM3 Eosinophils # (Auto) 0.1 TH/MM3 Basophils # (Auto) 0.0 TH/MM3 CBC Comment AUTO DIFF Differential Comment AUTO DIFF CONFIRMED Platelet Estimate LOW Platelet Morphology Comment ENLARGED Sodium Level 141 MEQ/L Potassium Level 4.3 MEQ/L Chloride Level 107 MEQ/L Carbon Dioxide Level 26.9 MEQ/L Anion Gap 7 MEQ/L Blood Urea Nitrogen 18 MG/DL Creatinine 1.00 MG/DL Estimat Glomerular Filtration 72 ML/MIN Rate Random Glucose 91 MG/DL Calcium Level 8.9 MG/DL Imaging Last Impressions Head CT 06/20/16 1324 Signed Impressions: Service Date/Time: Monday, June 20, 2016 14:43 - CONCLUSION: Negative for an acute process.. Addi Zaldivar MD FACR Chest X-Ray 06/20/16 1324 Signed Impressions: Service Date/Time: Monday, June 20, 2016 13:50 - CONCLUSION: Cardiomegaly and previous CABG. Andreas Rebolledo MD Neck Magnetic Resonance Angiography 06/20/16 0000 Signed Impressions: Service Date/Time: Monday, June 20, 2016 21:13 - CONCLUSION: Significant plaque in the right carotid bifurcation with moderate to severe stenosis in the proximal ICA measuring in the 50-69%% range. Dominant right vertebral artery. No other significant abnormality. Pasha Thakkar MD Carotid Artery Ultrasound 06/20/16 0000 Signed Impressions: Service Date/Time: Monday, June 20, 2016 18:48 - CONCLUSION: Significant calcified and noncalcified plaque involving the carotid bifurcations. No Doppler evidence of significant stenosis however do to the amount of plaque further evaluation with CTA or MRA may be of benefit if there is high clinical suspicion of carotid stenosis. Antegrade flow the vertebral arteries. Pasha Thakkar MD Brain MRI 06/20/16 0000 Signed Impressions: Service Date/Time: Monday, June 20, 2016 18:15 - CONCLUSION: Unremarkable exam. No evidence of acute infarct, hemorrhage, mass, edema or enhancing lesions. Pasha Thakkar MD Assessment and Plan Problem List: (1) Near syncope (2) A-fib (3) CAD (coronary artery disease) (4) HTN (hypertension) (5) Hyperlipidemia (6) Bradycardia with 31-40 beats per minute (7) PVD (peripheral vascular disease) Assessment and Plan Still in a fib w slow VR. Check echo. Will likely need permanent pacing. CEA planned after pacemaker placement. José Miguel Pina MD Jun 21, 2016 18:40
[2016-06-21] MEDS: ATORVASTATIN 20 MG TAB PO SCH (21:28)
[2016-06-22] VITALS (10 sets, daily range): BP systolic 140–200; BP diastolic 68–80; PULSE 33–40; RESP 15–18; TEMP 96.9–98.3; O2SAT 96–100
[2016-06-22] MEDS: SODIUM CHLOR 0.9% 1000 ML INJ 1,000 ML IV SCH (02:32)
[2016-06-22] MEDS: ENALAPRILAT 1.25 MG/ML VIAL IV PUSH PRN ×2 (05:01→20:02)
--- NOTE | 2016-06-22 11:08 | EC ---
Study Study Date:06/21/2016 STUDY CONCLUSIONS SUMMARY - Left ventricle: The cavity size was normal. Wall thickness was normal. Systolic function was normal. The estimated ejection fraction was in the range of 55% to 60%. Wall motion was normal; there were no regional wall motion abnormalities. - Mitral valve: Mild to moderate regurgitation. - Left atrium: The atrium was mildly dilated. - Right ventricle: The cavity size was mildly dilated. Wall thickness was normal. - Right atrium: The atrium was moderately dilated. - Tricuspid valve: Moderate regurgitation. - Pulmonary arteries: Systolic pressure was severely increased. PA peak pressure: 63mm Hg (S). If LV function is below 40, please consider prescribing an ACEI or ARB or document rationale for non-use. PROCEDURE DATA STUDY STATUS: Elective. Procedure: Transthoracic echocardiography. Image quality was good. Scanning was performed from the parasternal, apical, and subcostal acoustic windows. Study completion: The patient tolerated the procedure well. Transthoracic echocardiography. M-mode, complete 2D, complete spectral Doppler, and color Doppler. Patient status: Inpatient. CARDIAC ANATOMY LEFT VENTRICLE: The cavity size was normal. Wall thickness was normal. Systolic function was normal. The estimated ejection fraction was in the range of 55% to 60%. Wall motion was normal; there were no regional wall motion abnormalities. AORTIC VALVE: Trileaflet; normal thickness leaflets. Doppler: Transvalvular velocity was within the normal range. There was no stenosis. Trace to mild regurgitation. Peak gradient: 16mm Hg (S). AORTA: Aortic root: The aortic root was poorly visualized and normal in size. MITRAL VALVE: Structurally normal valve. Doppler: Transvalvular velocity was within the normal range. There was no evidence for stenosis. Mild to moderate regurgitation. Peak gradient: 3mm Hg (D). LEFT ATRIUM: The atrium was mildly dilated. RIGHT VENTRICLE: The cavity size was mildly dilated. Wall thickness was normal. PULMONIC VALVE: Doppler: Transvalvular velocity was within the normal range. There was no evidence for stenosis. No regurgitation. TRICUSPID VALVE: Structurally normal valve. Doppler: Transvalvular velocity was within the normal range. Moderate regurgitation. PULMONARY ARTERY: Systolic pressure was severely increased. RIGHT ATRIUM: The atrium was moderately dilated. PERICARDIUM: There was no pericardial effusion. SYSTEMIC VEINS: Inferior vena cava: The vessel was normal in size. BASIC MEASUREMENTS ADULT Normal Left ventricle LV internal dimension, ED, chordal level, *53.1 mm 43-52 PLAX LV internal dimension, ES, chordal level, *39.5 mm 23-38 PLAX Fractional shortening, chordal level, PLAX *26 % >29 LV posterior wall thickness, ED 9.19 mm IVS/LVPW ratio, ED *1.31 <1.3 Ventricular septum Septal thickness, ED 12 mm Aortic valve Leaflet separation 22 mm 15-26 Left atrium Anterior-posterior dimension 40 mm Right ventricle RV internal dimension, ED, PLAX 30.3 mm 19-38 BASIC MEASUREMENTS ADULT Normal Aortic valve Leaflet separation 22 mm 15-26 Aorta Root diameter, ED 35 mm 20-37 DOPPLER MEASUREMENTS ADULT Normal Main pulmonary artery Pressure, S *63 mm Hg =30 Aortic valve Peak velocity, S 198 cm/s Peak gradient, S 16 mm Hg Mitral valve Peak E-wave velocity 83.9 cm/s Peak A-wave velocity 60.3 cm/s Peak gradient, D 3 mm Hg Peak E/A ratio 1.4 Maximal regurgitant velocity 485 cm/s Tricuspid valve Regurgitant peak velocity 216 cm/s Peak RV-RA gradient, S 19 mm Hg Maximal regurgitant velocity 216 cm/s Systemic veins Estimated CVP 10 mm Hg Right ventricle RV pressure, S *63 mm Hg <30 LEGEND: Mean values are shown as u=mean value. Asterisk (*) damian values outside specified normal range. Prepared and signed by Brian Prabhakar [id number]
--- NOTE | 2016-06-22 11:10 | PD.CAR.PN ---
CVT Progress Note Subjective/Hospital Course: This gentleman had a syncopal episode and it is very hard to tell where it is coming from. Most likely it is heart related. Perhaps the patient developed more profound bradycardia. On the other hand, it seems to be a lateralizing event so, hence, the slight confusion. On the other hand, the patient has a clear finding of about 70% right internal carotid artery stenosis. I reviewed the study myself and I think it might be actually a little higher degree of narrowing. Question now arises if this is an asymptomatic stenosis or not. At this point, I believe it is irrelevant. The patient is in a very good physical shape. Cardiac workup takes precedence and I would allow Dr. Ng to do whatever needs to be done for the heart. In this particular situation, this patient might benefit from pacemaker placement but I would leave that up to cardiology. Once the heart is handled, I believe in face of 70% carotid artery stenosis and even questionable symptoms, the patient all things equal should be offered right carotid endarterectomy. Therefore, my plan is to allow cardiology to finish the workup on the patient, any diagnostic or therapeutic procedure that might be needed and then I intend to proceed with carotid endarterectomy. 06/22/16 Had a long discussion with the patient and today discussed the case with Dr. ng Patient was on Eliquis for his A. fib so he will undergo pacemaker placement on Monday. I will follow with a carotid right endarterectomy thereafter probably on Monday or Monday without restarting anticoagulants in the meantime This is the safest approach to this situation In addition I reviewed the MRI and the the degree of stenosis is probably somewhat larger than 70% Objective: Vital Signs Date Time Temp Pulse Resp B/P Pulse Ox O2 Delivery O2 Flow Rate FiO2 06/22/16 07:00 97.5 33 16 160/70 96 06/22/16 04:00 98.3 37 18 182/78 99 06/22/16 04:00 Room Air 06/22/16 00:00 97.8 35 18 170/74 96 06/22/16 00:00 Room Air 06/21/16 20:00 98.0 41 18 172/74 97 06/21/16 20:00 44 06/21/16 20:00 Room Air 06/21/16 16:00 97.3 48 18 140/75 97 06/21/16 12:00 97.0 38 18 130/70 97 Result Diagram: 06/21/16 0940 06/21/16 0940 (1) Near syncope (2) A-fib (3) CAD (coronary artery disease) (4) HTN (hypertension) (5) Hyperlipidemia (6) Bradycardia with 31-40 beats per minute (7) PVD (peripheral vascular disease) Brielle Parker MD Jun 22, 2016 11:10
[2016-06-22] MEDS: amLODIPine BESYLATE 5 MG TAB PO SCH (11:21)
[2016-06-22] MEDS: ASPIRIN EC 81 MG TABEC PO SCH (11:21)
[2016-06-22] MEDS: APIXABAN 5 MG TABLET PO SCH (11:21)
[2016-06-22] MEDS: SODIUM CHLORIDE 0.9% FLUSH 5 ML FLUSH FLUSH SCH ×2 (11:24→20:03)
--- NOTE | 2016-06-22 12:38 | HHI.PR ---
Subjective Remarks no complaints telemetry HR- in the 30s Objective Vitals Vital Signs Date Time Temp Pulse Resp B/P Pulse Ox O2 Delivery O2 Flow Rate FiO2 06/22/16 07:00 97.5 33 16 160/70 96 06/22/16 04:00 98.3 37 18 182/78 99 06/22/16 04:00 Room Air 06/22/16 00:00 97.8 35 18 170/74 96 06/22/16 00:00 Room Air 06/21/16 20:00 98.0 41 18 172/74 97 06/21/16 20:00 44 06/21/16 20:00 Room Air 06/21/16 16:00 97.3 48 18 140/75 97 I/O 06/21/16 06/21/16 06/21/16 06/22/16 06/22/16 06/22/16 07:00 15:00 23:00 07:00 15:00 23:00 Intake Total 696 ml 834 ml 829 ml 857 ml Output Total 450 ml 600 ml 800 ml Balance 246 ml 234 ml 29 ml 857 ml Intake Oral 0 ml 480 ml 240 ml 220 ml IV Total 696 ml 354 ml 589 ml 637 ml Output Urine Total 450 ml 600 ml 800 ml # Voids 2 # Bowel Movements 0 1 0 0 Result Diagram: 06/21/1640 06/21/16 0940 Imaging Last Impressions Head CT 06/20/161323 Signed Impressions: Service Date/Time: Monday, June 20, 2016 14:43 - CONCLUSION: Negative for an acute process.. Addi Zaldivar MD FACR Chest X-Ray 06/20/161323 Signed Impressions: Service Date/Time: Monday, June 20, 2016 13:50 - CONCLUSION: Cardiomegaly and previous CABG. Andreas Rebolledo MD Neck Magnetic Resonance Angiography 06/20/16 0000 Signed Impressions: Service Date/Time: Monday, June 20, 2016 21:13 - CONCLUSION: Significant plaque in the right carotid bifurcation with moderate to severe stenosis in the proximal ICA measuring in the 50-69%% range. Dominant right vertebral artery. No other significant abnormality. Pasha Thakkar MD Carotid Artery Ultrasound 06/20/16 0000 Signed Impressions: Service Date/Time: Monday, June 20, 2016 18:48 - CONCLUSION: Significant calcified and noncalcified plaque involving the carotid bifurcations. No Doppler evidence of significant stenosis however do to the amount of plaque further evaluation with CTA or MRA may be of benefit if there is high clinical suspicion of carotid stenosis. Antegrade flow the vertebral arteries. Pasha Thakkar MD Brain MRI 06/20/16 0000 Signed Impressions: Service Date/Time: Monday, June 20, 2016 18:15 - CONCLUSION: Unremarkable exam. No evidence of acute infarct, hemorrhage, mass, edema or enhancing lesions. Pasha Thakkar MD Objective Remarks anicteric left carotid bruit lungs clear irregular rhythm, rate 40s abdomen soft, nontender extremities no edema neuro exam- unremarkable A/P Problem List: (1) Near syncope ICD Code: R55 Status: Acute (2) A-fib ICD Code: I48.91 Status: Chronic (3) CAD (coronary artery disease) ICD Code: I25.10 Status: Chronic (4) Hyperlipidemia ICD Code: E78.5 Status: Chronic (5) HTN (hypertension) ICD Code: I10 Status: Chronic Assessment and Plan 80 years old admitted for near syncope Atrial fibrillation in slow ventricular rate- 30-40s Symptomatic bradycardia Cardiology ff. plan for PM. Eliquis Right carotid stenosis plan for CEA- Vascular surgery ff Hypertensive urgency- better amlodipine 5 mg daily. - increase to 10 mg daily consider RANDA scheduled prn IV Vasotec with BP greater than 180/90 no BB, clonidine due to bradycardia Acute Kidney Injury- improved. good po Heplock IV History of BPH restart his Terazosin at 5 mg hs- should help with his BP Coreen Rolon MD Jun 22, 2016 12:37
--- NOTE | 2016-06-22 17:28 | PD.CARD.PN ---
Subjective Subjective Remarks No CP or SOB, still bradycardic Objective Medications Current Medications Medications (Trade) Dose Ordered Sig/Magdaleno Route Start Time Stop Time Status Last Admin (NS Flush) 2 ml UNSCH PRN FLUSH 06/20/16 17:00 (NS Flush) 2 ml BID FLUSH 06/20/16 21:00 06/22/16 11:24 (Tylenol) 650 mg Q4H PRN PO 06/20/16 17:00 (Zofran Inj) 4 mg Q6H PRN IVP 06/20/16 17:00 (Narcan Inj) 0.4 mg UNSCH PRN IV 06/20/16 17:00 (Lipitor) 20 mg HS PO 06/20/16 21:00 06/21/16 21:28 (Ecotrin Ec) 81 mg DAILY PO 06/21/16 09:00 06/22/16 11:21 (Vasotec Inj) 1.25 mg Q8H PRN IV PUSH 06/20/16 20:45 06/22/16 05:01 (Eliquis) 5 mg BID PO 06/20/16 22:05 06/22/16 11:21 (Hytrin) 5 mg HS PO 06/22/16 21:00 (Norvasc) 10 mg DAILY PO 06/23/16 09:00 Vital Signs / I&O Vital Signs Date Time Temp Pulse Resp B/P Pulse Ox O2 Delivery O2 Flow Rate FiO2 06/22/16 16:00 97.4 35 16 165/70 98 06/22/16 12:00 97.4 35 16 150/70 100 06/22/16 10:06 96 21 06/22/16 08:00 96 Room Air 21 06/22/16 08:00 34 06/22/16 07:00 97.5 33 16 160/70 96 06/22/16 04:00 98.3 37 18 182/78 99 06/22/16 04:00 Room Air 06/22/16 00:00 97.8 35 18 170/74 96 06/22/16 00:00 Room Air 06/21/16 20:00 98.0 41 18 172/74 97 06/21/16 20:00 44 06/21/16 20:00 Room Air I/O 06/21/16 06/21/16 06/21/16 06/22/1606/22/17 3/1/17 07:00 15:00 23:00 07:00 15:00 23:00 Intake Total 696 ml 834 ml 829 ml 857 ml 960 ml Output Total 450 ml 600 ml 800 ml 900 ml Balance 246 ml 234 ml 29 ml 857 ml 60 ml Intake Oral 0 ml 480 ml 240 ml 220 ml 960 ml IV Total 696 ml 354 ml 589 ml 637 ml Output Urine Total 450 ml 600 ml 800 ml 900 ml # Voids 2 # Bowel Movements 0 1 0 0 2 Physical Exam GENERAL:In NAD SKIN: Warm and dry. HEAD: Normocephalic. EYES: No scleral icterus. No injection or drainage. NECK: Supple, trachea midline. No JVD or lymphadenopathy. CARDIOVASCULAR: Irregular, without murmurs, gallops, or rubs. RESPIRATORY: Breath sounds equal bilaterally. No accessory muscle use. GASTROINTESTINAL: Abdomen soft, non-tender, nondistended. MUSCULOSKELETAL: No cyanosis, or edema. Laboratory Laboratory Tests Test 06/20/16 06/20/16 06/21/16 14:00 16:55 09:40 Prothrombin Time 11.3 SEC Prothromb Time International 1.0 RATIO Ratio Activated Partial 24.7 SEC Thromboplast Time Hemoglobin A1c 5.7 % Magnesium Level 2.4 MG/DL Total Bilirubin 0.7 MG/DL Aspartate Amino Transf 23 U/L (AST/SGOT) Alanine Aminotransferase 31 U/L (ALT/SGPT) Alkaline Phosphatase 99 U/L Total Creatine Kinase 238 U/L Creatine Kinase MB 2.3 NG/ML Troponin I 0.03 NG/ML Total Protein 7.0 GM/DL Albumin 4.0 GM/DL Triglycerides Level 66 MG/DL Cholesterol Level 131 MG/DL LDL Cholesterol 52 MG/DL HDL Cholesterol 65.4 MG/DL Cholesterol/HDL Ratio 2.00 RATIO Thyroid Stimulating Hormone 3.930 uIU/ML 3rd Gen Urine Color YELLOW Urine Turbidity CLEAR Urine pH 6.0 Urine Specific [place] 1.020 Urine Protein NEG mg/dL Urine Glucose (UA) NEG mg/dL Urine Ketones 10 mg/dL Urine Occult Blood NEG Urine Nitrite NEG Urine Bilirubin NEG Urine Urobilinogen LESS THAN 2.0 MG/DL Urine Leukocyte Esterase NEG Urine RBC LESS THAN 1 /hpf Urine WBC LESS THAN 1 /hpf Urine Squamous Epithelial <1 /hpf Cells Urine Hyaline Casts 1 /lpf Urine Mucus FEW /lpf Microscopic Urinalysis Comment CATH-CULT NOT IND White Blood Count 5.1 TH/MM3 Red Blood Count 4.20 MIL/MM3 Hemoglobin 13.3 GM/DL Hematocrit 40.3 % Mean Corpuscular Volume 96.1 FL Mean Corpuscular Hemoglobin 31.7 PG Mean Corpuscular Hemoglobin 33.0 % Concent Red Cell Distribution Width 13.4 % Platelet Count 98 TH/MM3 Mean Platelet Volume 11.3 FL Neutrophils (%) (Auto) 70.9 % Lymphocytes (%) (Auto) 18.7 % Monocytes (%) (Auto) 8.4 % Eosinophils (%) (Auto) 1.8 % Basophils (%) (Auto) 0.2 % Neutrophils # (Auto) 3.6 TH/MM3 Lymphocytes # (Auto) 1.0 TH/MM3 Monocytes # (Auto) 0.4 TH/MM3 Eosinophils # (Auto) 0.1 TH/MM3 Basophils # (Auto) 0.0 TH/MM3 CBC Comment AUTO DIFF Differential Comment AUTO DIFF CONFIRMED Platelet Estimate LOW Platelet Morphology Comment ENLARGED Sodium Level 141 MEQ/L Potassium Level 4.3 MEQ/L Chloride Level 107 MEQ/L Carbon Dioxide Level 26.9 MEQ/L Anion Gap 7 MEQ/L Blood Urea Nitrogen 18 MG/DL Creatinine 1.00 MG/DL Estimat Glomerular Filtration 72 ML/MIN Rate Random Glucose 91 MG/DL Calcium Level 8.9 MG/DL Laboratory Tests Test 06/20/16 06/20/16 06/21/16 14:00 16:55 09:40 Prothrombin Time 11.3 SEC Prothromb Time International 1.0 RATIO Ratio Activated Partial 24.7 SEC Thromboplast Time Hemoglobin A1c 5.7 % Magnesium Level 2.4 MG/DL Total Bilirubin 0.7 MG/DL Aspartate Amino Transf 23 U/L (AST/SGOT) Alanine Aminotransferase 31 U/L (ALT/SGPT) Alkaline Phosphatase 99 U/L Total Creatine Kinase 238 U/L Creatine Kinase MB 2.3 NG/ML Troponin I 0.03 NG/ML Total Protein 7.0 GM/DL Albumin 4.0 GM/DL Triglycerides Level 66 MG/DL Cholesterol Level 131 MG/DL LDL Cholesterol 52 MG/DL HDL Cholesterol 65.4 MG/DL Cholesterol/HDL Ratio 2.00 RATIO Thyroid Stimulating Hormone 3.930 uIU/ML 3rd Gen Urine Color YELLOW Urine Turbidity CLEAR Urine pH 6.0 Urine Specific [place] 1.020 Urine Protein NEG mg/dL Urine Glucose (UA) NEG mg/dL Urine Ketones 10 mg/dL Urine Occult Blood NEG Urine Nitrite NEG Urine Bilirubin NEG Urine Urobilinogen LESS THAN 2.0 MG/DL Urine Leukocyte Esterase NEG Urine RBC LESS THAN 1 /hpf Urine WBC LESS THAN 1 /hpf Urine Squamous Epithelial <1 /hpf Cells Urine Hyaline Casts 1 /lpf Urine Mucus FEW /lpf Microscopic Urinalysis Comment CATH-CULT NOT IND White Blood Count 5.1 TH/MM3 Red Blood Count 4.20 MIL/MM3 Hemoglobin 13.3 GM/DL Hematocrit 40.3 % Mean Corpuscular Volume 96.1 FL Mean Corpuscular Hemoglobin 31.7 PG Mean Corpuscular Hemoglobin 33.0 % Concent Red Cell Distribution Width 13.4 % Platelet Count 98 TH/MM3 Mean Platelet Volume 11.3 FL Neutrophils (%) (Auto) 70.9 % Lymphocytes (%) (Auto) 18.7 % Monocytes (%) (Auto) 8.4 % Eosinophils (%) (Auto) 1.8 % Basophils (%) (Auto) 0.2 % Neutrophils # (Auto) 3.6 TH/MM3 Lymphocytes # (Auto) 1.0 TH/MM3 Monocytes # (Auto) 0.4 TH/MM3 Eosinophils # (Auto) 0.1 TH/MM3 Basophils # (Auto) 0.0 TH/MM3 CBC Comment AUTO DIFF Differential Comment AUTO DIFF CONFIRMED Platelet Estimate LOW Platelet Morphology Comment ENLARGED Sodium Level 141 MEQ/L Potassium Level 4.3 MEQ/L Chloride Level 107 MEQ/L Carbon Dioxide Level 26.9 MEQ/L Anion Gap 7 MEQ/L Blood Urea Nitrogen 18 MG/DL Creatinine 1.00 MG/DL Estimat Glomerular Filtration 72 ML/MIN Rate Random Glucose 91 MG/DL Calcium Level 8.9 MG/DL Imaging Last Impressions Head CT 06/20/161323 Signed Impressions: Service Date/Time: Monday, June 20, 2016 14:43 - CONCLUSION: Negative for an acute process.. Addi Zaldivar MD FACR Chest X-Ray 06/20/161323 Signed Impressions: Service Date/Time: Monday, June 20, 2016 13:50 - CONCLUSION: Cardiomegaly and previous CABG. Andreas Rebolledo MD Neck Magnetic Resonance Angiography 06/20/16 0000 Signed Impressions: Service Date/Time: Monday, June 20, 2016 21:13 - CONCLUSION: Significant plaque in the right carotid bifurcation with moderate to severe stenosis in the proximal ICA measuring in the 50-69%% range. Dominant right vertebral artery. No other significant abnormality. Pasha Thakkar MD Carotid Artery Ultrasound 06/20/16 0000 Signed Impressions: Service Date/Time: Monday, June 20, 2016 18:48 - CONCLUSION: Significant calcified and noncalcified plaque involving the carotid bifurcations. No Doppler evidence of significant stenosis however do to the amount of plaque further evaluation with CTA or MRA may be of benefit if there is high clinical suspicion of carotid stenosis. Antegrade flow the vertebral arteries. Pasha Thakkar MD Brain MRI 06/20/16 0000 Signed Impressions: Service Date/Time: Monday, June 20, 2016 18:15 - CONCLUSION: Unremarkable exam. No evidence of acute infarct, hemorrhage, mass, edema or enhancing lesions. Pasha Thakkar MD Assessment and Plan Problem List: (1) Near syncope (2) A-fib (3) CAD (coronary artery disease) (4) HTN (hypertension) (5) Hyperlipidemia (6) Bradycardia with 31-40 beats per minute (7) PVD (peripheral vascular disease) Assessment and Plan Still in a fib w slow VR, dean not improving. Echo with normal LV systolic fx. Will need permanent pacing. D/C [place], pacer placement in 48 hrs. CEA planned after pacemaker placement. José Miguel Pina MD Jun 22, 2016 17:28
[2016-06-22] MEDS: TERAZOSIN HCL 5 MG CAP PO SCH (20:03)
[2016-06-22] MEDS: ATORVASTATIN 20 MG TAB PO SCH (20:03)
[2016-06-23] VITALS (9 sets, daily range): BP systolic 150–193; BP diastolic 67–79; PULSE 35–48; RESP 16–20; TEMP 97.1–98.4; O2SAT 95–100
[2016-06-23] MEDS: ASPIRIN EC 81 MG TABEC PO SCH (08:35)
[2016-06-23] MEDS: SODIUM CHLORIDE 0.9% FLUSH 5 ML FLUSH FLUSH SCH ×2 (08:35→22:16)
--- NOTE | 2016-06-23 10:51 | HHI.PR ---
Subjective Remarks asymptmatic up and ambulating HR in 30s-40s Objective Vitals Vital Signs Date Time Temp Pulse Resp B/P Pulse Ox O2 Delivery O2 Flow Rate FiO2 06/23/16 08:00 97.3 36 16 186/77 97 06/23/16 05:01 97.1 35 16 163/70 97 06/23/16 03:29 43 06/23/16 00:27 97.6 40 16 169/73 95 06/22/16 21:35 Room Air 06/22/16 21:34 140/68 06/22/16 21:16 182/78 06/22/16 20:19 96.9 40 15 200/80 97 06/22/16 16:00 97.4 35 16 165/70 98 06/22/16 12:00 97.4 35 16 150/70 100 I/O 06/22/16 06/22/16 06/22/16 06/23/16 06/23/16 06/23/16 07:00 15:00 23:00 07:00 15:00 23:00 Intake Total 857 ml 960 ml 360 ml 150 ml Output Total 900 ml 200 ml Balance 857 ml 60 ml 160 ml 150 ml Intake Oral 220 ml 960 ml 360 ml 150 ml IV Total 637 ml Output Urine Total 900 ml 200 ml # Voids 2 1 # Bowel Movements 0 2 1 0 Result Diagram: 06/21/16 0940 06/21/16 0940 Imaging Last Impressions Head CT 06/20/161323 Signed Impressions: Service Date/Time: Monday, June 20, 2016 14:43 - CONCLUSION: Negative for an acute process.. Addi Zaldivar MD FACR Chest X-Ray 06/20/16 1324 Signed Impressions: Service Date/Time: Monday, June 20, 2016 13:50 - CONCLUSION: Cardiomegaly and previous CABG. Andreas Rebolledo MD Neck Magnetic Resonance Angiography 06/20/16 0000 Signed Impressions: Service Date/Time: Monday, June 20, 2016 21:13 - CONCLUSION: Significant plaque in the right carotid bifurcation with moderate to severe stenosis in the proximal ICA measuring in the 50-69%% range. Dominant right vertebral artery. No other significant abnormality. Pasha Thakkar MD Carotid Artery Ultrasound 06/20/16 0000 Signed Impressions: Service Date/Time: Monday, June 20, 2016 18:48 - CONCLUSION: Significant calcified and noncalcified plaque involving the carotid bifurcations. No Doppler evidence of significant stenosis however do to the amount of plaque further evaluation with CTA or MRA may be of benefit if there is high clinical suspicion of carotid stenosis. Antegrade flow the vertebral arteries. Pasha Thakkar MD Brain MRI 06/20/16 0000 Signed Impressions: Service Date/Time: Monday, June 20, 2016 18:15 - CONCLUSION: Unremarkable exam. No evidence of acute infarct, hemorrhage, mass, edema or enhancing lesions. Pasha Thakkar MD Objective Remarks anicteric left carotid bruit lungs clear irregular rhythm, rate 40s abdomen soft, nontender extremities no edema neuro exam- unremarkable A/P Problem List: (1) Near syncope ICD Code: R55 Status: Acute (2) A-fib ICD Code: I48.91 Status: Chronic (3) CAD (coronary artery disease) ICD Code: I25.10 Status: Chronic (4) Hyperlipidemia ICD Code: E78.5 Status: Chronic (5) HTN (hypertension) ICD Code: I10 Status: Chronic Assessment and Plan 80 years old admitted for near syncope Atrial fibrillation in slow ventricular rate- 30-40s Symptomatic bradycardia Cardiology ff. plan for PM. Eliquis- discontinued Right carotid stenosis plan for CEA- Vascular surgery ff after PM placement Hypertensive urgency- better amlodipine 5 mg daily. - increase to 10 mg daily Lisinopril 2.5 mg po daily- increase prn IV Vasotec with BP greater than 180/90 no BB, clonidine due to bradycardia Acute Kidney Injury- improved. good po Heplock IV History of BPH Terazosin at 5 mg hs- should help with his BP Coreen Rolon MD Jun 23, 2016 10:51
--- NOTE | 2016-06-23 15:03 | PD.CAR.PN ---
CVT Progress Note Subjective/Hospital Course: This gentleman had a syncopal episode and it is very hard to tell where it is coming from. Most likely it is heart related. Perhaps the patient developed more profound bradycardia. On the other hand, it seems to be a lateralizing event so, hence, the slight confusion. On the other hand, the patient has a clear finding of about 70% right internal carotid artery stenosis. I reviewed the study myself and I think it might be actually a little higher degree of narrowing. Question now arises if this is an asymptomatic stenosis or not. At this point, I believe it is irrelevant. The patient is in a very good physical shape. Cardiac workup takes precedence and I would allow Dr. Ng to do whatever needs to be done for the heart. In this particular situation, this patient might benefit from pacemaker placement but I would leave that up to cardiology. Once the heart is handled, I believe in face of 70% carotid artery stenosis and even questionable symptoms, the patient all things equal should be offered right carotid endarterectomy. Therefore, my plan is to allow cardiology to finish the workup on the patient, any diagnostic or therapeutic procedure that might be needed and then I intend to proceed with carotid endarterectomy. 06/22/16 Had a long discussion with the patient and today discussed the case with Dr. ng Patient was on Eliquis for his A. fib so he will undergo pacemaker placement on Monday. I will follow with a carotid right endarterectomy thereafter probably on Monday or Monday without restarting anticoagulants in the meantime This is the safest approach to this situation In addition I reviewed the MRI and the the degree of stenosis is probably somewhat larger than 70% 06/23/2016 Discussed the case with the patient and Dr. Ng Patient will undergo placement of a pacemaker on Monday and I will follow with the right carotid endarterectomy on Monday On the other hand if patient wants to go home on anticoagulants I can always bring him back in the future for carotid endarterectomy I will give patient some time to recover Objective: Vital Signs Date Time Temp Pulse Resp B/P Pulse Ox O2 Delivery O2 Flow Rate FiO2 06/23/16 12:00 98.0 40 16 182/79 99 06/23/16 08:00 97.3 36 16 186/77 97 06/23/16 08:00 38 06/23/16 08:00 96 Room Air 21 06/23/16 05:01 97.1 35 16 163/70 97 06/23/16 03:29 43 06/23/16 00:27 97.6 40 16 169/73 95 06/22/16 21:35 Room Air 06/22/16 21:34 140/68 06/22/16 21:16 182/78 06/22/16 20:19 96.9 40 15 200/80 97 06/22/16 16:00 97.4 35 16 165/70 98 Result Diagram: 06/21/1640 06/21/16 0940 (1) Near syncope (2) A-fib (3) CAD (coronary artery disease) (4) HTN (hypertension) (5) Hyperlipidemia (6) Bradycardia with 31-40 beats per minute (7) PVD (peripheral vascular disease) Brielle Parker MD Jun 23, 2016 15:03
[2016-06-23] MEDS: LISINOPRIL 5 MG TAB PO SCH (15:19)
[2016-06-23] MEDS ORDERED: BISACODYL 10 MG SUPP RECTAL ONE (16:45)
--- NOTE | 2016-06-23 17:48 | PD.CARD.PN ---
Subjective Subjective Remarks No CP, mild SOB Objective Medications Current Medications Medications (Trade) Dose Ordered Sig/Magdaleno Route Start Time Stop Time Status Last Admin (NS Flush) 2 ml UNSCH PRN FLUSH 06/20/16 17:00 (NS Flush) 2 ml BID FLUSH 06/20/16 21:00 06/23/16 08:35 (Tylenol) 650 mg Q4H PRN PO 06/20/16 17:00 (Zofran Inj) 4 mg Q6H PRN IVP 06/20/16 17:00 (Narcan Inj) 0.4 mg UNSCH PRN IV 06/20/16 17:00 (Lipitor) 20 mg HS PO 06/20/16 21:00 06/22/16 20:03 (Ecotrin Ec) 81 mg DAILY PO 06/21/16 09:00 06/23/16 08:35 (Vasotec Inj) 1.25 mg Q8H PRN IV PUSH 06/20/16 20:45 06/22/16 20:02 (Eliquis) 5 mg BID PO 06/20/16 22:05 Hold 06/22/16 11:21 (Hytrin) 5 mg HS PO 06/22/16 21:00 06/22/16 20:03 (Norvasc) 10 mg DAILY PO 06/23/16 09:00 06/23/16 08:35 (Prinivil) 5 mg DAILY PO 06/23/16 12:00 06/23/16 15:19 (Colace) 100 mg BID PO 06/23/16 21:00 Vital Signs / I&O Vital Signs Date Time Temp Pulse Resp B/P Pulse Ox O2 Delivery O2 Flow Rate FiO2 06/23/16 16:00 98.4 38 16 193/73 99 06/23/16 12:00 98.0 40 16 182/79 99 06/23/16 08:00 97.3 36 16 186/77 97 06/23/16 08:00 38 06/23/16 08:00 96 Room Air 21 06/23/16 05:01 97.1 35 16 163/70 97 06/23/16 03:29 43 06/23/16 00:27 97.6 40 16 169/73 95 06/22/16 21:35 Room Air 06/22/16 21:34 140/68 06/22/16 21:16 182/78 06/22/16 20:19 96.9 40 15 200/80 97 I/O 06/22/16 06/22/16 06/22/16 06/23/16 06/23/16 06/23/16 07:00 15:00 23:00 07:00 15:00 23:00 Intake Total 857 ml 960 ml 360 ml 150 ml 600 ml Output Total 900 ml 200 ml 800 ml Balance 857 ml 60 ml 160 ml 150 ml -200 ml Intake Oral 220 ml 960 ml 360 ml 150 ml 600 ml IV Total 637 ml Output Urine Total 900 ml 200 ml 800 ml # Voids 2 1 # Bowel Movements 0 2 1 0 Physical Exam GENERAL:In NAD SKIN: Warm and dry. HEAD: Normocephalic. EYES: No scleral icterus. No injection or drainage. NECK: Supple, trachea midline. No JVD or lymphadenopathy. CARDIOVASCULAR: Irregular, without murmurs, gallops, or rubs. RESPIRATORY: Breath sounds equal bilaterally. No accessory muscle use. GASTROINTESTINAL: Abdomen soft, non-tender, nondistended. MUSCULOSKELETAL: No cyanosis, or edema. Laboratory Laboratory Tests Test 06/20/16 06/20/16 06/21/16 14:00 16:55 09:40 Prothrombin Time 11.3 SEC Prothromb Time International 1.0 RATIO Ratio Activated Partial 24.7 SEC Thromboplast Time Hemoglobin A1c 5.7 % Magnesium Level 2.4 MG/DL Total Bilirubin 0.7 MG/DL Aspartate Amino Transf 23 U/L (AST/SGOT) Alanine Aminotransferase 31 U/L (ALT/SGPT) Alkaline Phosphatase 99 U/L Total Creatine Kinase 238 U/L Creatine Kinase MB 2.3 NG/ML Troponin I 0.03 NG/ML Total Protein 7.0 GM/DL Albumin 4.0 GM/DL Triglycerides Level 66 MG/DL Cholesterol Level 131 MG/DL LDL Cholesterol 52 MG/DL HDL Cholesterol 65.4 MG/DL Cholesterol/HDL Ratio 2.00 RATIO Thyroid Stimulating Hormone 3.930 uIU/ML 3rd Gen Urine Color YELLOW Urine Turbidity CLEAR Urine pH 6.0 Urine Specific [place] 1.020 Urine Protein NEG mg/dL Urine Glucose (UA) NEG mg/dL Urine Ketones 10 mg/dL Urine Occult Blood NEG Urine Nitrite NEG Urine Bilirubin NEG Urine Urobilinogen LESS THAN 2.0 MG/DL Urine Leukocyte Esterase NEG Urine RBC LESS THAN 1 /hpf Urine WBC LESS THAN 1 /hpf Urine Squamous Epithelial <1 /hpf Cells Urine Hyaline Casts 1 /lpf Urine Mucus FEW /lpf Microscopic Urinalysis Comment CATH-CULT NOT IND White Blood Count 5.1 TH/MM3 Red Blood Count 4.20 MIL/MM3 Hemoglobin 13.3 GM/DL Hematocrit 40.3 % Mean Corpuscular Volume 96.1 FL Mean Corpuscular Hemoglobin 31.7 PG Mean Corpuscular Hemoglobin 33.0 % Concent Red Cell Distribution Width 13.4 % Platelet Count 98 TH/MM3 Mean Platelet Volume 11.3 FL Neutrophils (%) (Auto) 70.9 % Lymphocytes (%) (Auto) 18.7 % Monocytes (%) (Auto) 8.4 % Eosinophils (%) (Auto) 1.8 % Basophils (%) (Auto) 0.2 % Neutrophils # (Auto) 3.6 TH/MM3 Lymphocytes # (Auto) 1.0 TH/MM3 Monocytes # (Auto) 0.4 TH/MM3 Eosinophils # (Auto) 0.1 TH/MM3 Basophils # (Auto) 0.0 TH/MM3 CBC Comment AUTO DIFF Differential Comment AUTO DIFF CONFIRMED Platelet Estimate LOW Platelet Morphology Comment ENLARGED Sodium Level 141 MEQ/L Potassium Level 4.3 MEQ/L Chloride Level 107 MEQ/L Carbon Dioxide Level 26.9 MEQ/L Anion Gap 7 MEQ/L Blood Urea Nitrogen 18 MG/DL Creatinine 1.00 MG/DL Estimat Glomerular Filtration 72 ML/MIN Rate Random Glucose 91 MG/DL Calcium Level 8.9 MG/DL Imaging Last Impressions Head CT 06/20/16 1324 Signed Impressions: Service Date/Time: Monday, June 20, 2016 14:43 - CONCLUSION: Negative for an acute process.. Addi Zaldivar MD FACR Chest X-Ray 06/20/16 1324 Signed Impressions: Service Date/Time: Monday, June 20, 2016 13:50 - CONCLUSION: Cardiomegaly and previous CABG. Andreas Rebolledo MD Neck Magnetic Resonance Angiography 06/20/16 0000 Signed Impressions: Service Date/Time: Monday, June 20, 2016 21:13 - CONCLUSION: Significant plaque in the right carotid bifurcation with moderate to severe stenosis in the proximal ICA measuring in the 50-69%% range. Dominant right vertebral artery. No other significant abnormality. Pasha Thakkar MD Carotid Artery Ultrasound 06/20/16 Signed Impressions: Service Date/Time: Monday, June 20, 2016 18:48 - CONCLUSION: Significant calcified and noncalcified plaque involving the carotid bifurcations. No Doppler evidence of significant stenosis however do to the amount of plaque further evaluation with CTA or MRA may be of benefit if there is high clinical suspicion of carotid stenosis. Antegrade flow the vertebral arteries. Pasha Thakkar MD Brain MRI 06/20/16 Signed Impressions: Service Date/Time: Monday, June 20, 2016 18:15 - CONCLUSION: Unremarkable exam. No evidence of acute infarct, hemorrhage, mass, edema or enhancing lesions. Pasha Thakkar MD Assessment and Plan Problem List: (1) Near syncope (2) A-fib (3) CAD (coronary artery disease) (4) HTN (hypertension) (5) Hyperlipidemia (6) Bradycardia with 31-40 beats per minute (7) PVD (peripheral vascular disease) Assessment and Plan Still severely bradycardic. Echo with normal LV systolic fx. Off Eliquis, pacer placement tomorrow. CEA planned after pacemaker placement, then restart Eliquis. José Miguel Pina MD Jun 23, 2016 17:48
[2016-06-23] MEDS: TERAZOSIN HCL 5 MG CAP PO SCH (22:16)
[2016-06-23] MEDS: DOCUSATE SODIUM 100 MG CAP PO SCH (22:16)
[2016-06-23] MEDS: ATORVASTATIN 20 MG TAB PO SCH (22:16)
[2016-06-24] VITALS (14 sets, daily range): BP systolic 157–177; BP diastolic 72–89; PULSE 38–90; RESP 18–26; TEMP 97.4–97.8; O2SAT 96–100
[2016-06-24] MEDS: DOCUSATE SODIUM 100 MG CAP PO SCH ×2 (08:21→21:12)
[2016-06-24] MEDS: SODIUM CHLORIDE 0.9% FLUSH 5 ML FLUSH FLUSH SCH (08:22)
[2016-06-24] MEDS: LISINOPRIL 5 MG TAB PO SCH (08:22)
[2016-06-24] MEDS: ASPIRIN EC 81 MG TABEC PO SCH (08:22)
[2016-06-24] MEDS ORDERED: LIDOCAINE HCL 2% 50 ML VIAL ONE (11:53)
[2016-06-24] MEDS ORDERED: ceFAZolin INJ 1,000 MG VIAL ONE (11:53)
[2016-06-24] MEDS ORDERED: VANCOMYCIN HCL 1000 MG VIAL ONE (11:53)
[2016-06-24] MEDS ORDERED: VANCOMYCIN 500 MG VIAL ONE (11:53)
--- NOTE | 2016-06-24 12:02 | HHI.PR ---
Subjective Remarks no complains HR dips down to 30s when asleep Objective Vitals Vital Signs Date Time Temp Pulse Resp B/P Pulse Ox O2 Delivery O2 Flow Rate FiO2 06/24/16 08:00 97.8 40 18 165/74 98 06/24/16 08:00 Room Air 06/24/16 05:03 38 06/24/16 04:00 97.4 58 20 177/79 96 06/24/16 04:00 Room Air 06/24/16 00:00 Room Air 06/24/16 00:00 97.4 63 20 157/72 100 06/23/16 22:45 48 06/23/16 20:05 36 06/23/16 20:00 Room Air 06/23/16 20:00 97.2 36 20 150/67 100 06/23/16 16:00 98.4 38 16 193/73 99 I/O 06/23/16 06/23/16 06/23/16 06/24/16 06/24/16 06/24/16 07:00 15:00 23:00 07:00 15:00 23:00 Intake Total 150 ml 600 ml 240 ml 120 ml Output Total 800 ml 800 ml Balance 150 ml -200 ml 240 ml -680 ml Intake Oral 150 ml 600 ml 240 ml 120 ml Output Urine Total 800 ml 800 ml # Voids 1 # Bowel Movements 0 1 Result Diagram: 06/21/1640 06/21/16 0940 Imaging Last Impressions Head CT 06/20/161323 Signed Impressions: Service Date/Time: Monday, June 20, 2016 14:43 - CONCLUSION: Negative for an acute process.. Addi Zaldivar MD FACR Chest X-Ray 06/20/164 Signed Impressions: Service Date/Time: Monday, June 20, 2016 13:50 - CONCLUSION: Cardiomegaly and previous CABG. Andreas Rebolledo MD Neck Magnetic Resonance Angiography 06/20/16 0000 Signed Impressions: Service Date/Time: Monday, June 20, 2016 21:13 - CONCLUSION: Significant plaque in the right carotid bifurcation with moderate to severe stenosis in the proximal ICA measuring in the 50-69%% range. Dominant right vertebral artery. No other significant abnormality. Pasha Thakkar MD Carotid Artery Ultrasound 06/20/16 0000 Signed Impressions: Service Date/Time: Monday, June 20, 2016 18:48 - CONCLUSION: Significant calcified and noncalcified plaque involving the carotid bifurcations. No Doppler evidence of significant stenosis however do to the amount of plaque further evaluation with CTA or MRA may be of benefit if there is high clinical suspicion of carotid stenosis. Antegrade flow the vertebral arteries. Pasha Thakkar MD Brain MRI 06/20/16 0000 Signed Impressions: Service Date/Time: Monday, June 20, 2016 18:15 - CONCLUSION: Unremarkable exam. No evidence of acute infarct, hemorrhage, mass, edema or enhancing lesions. Pasha Thakkar MD Objective Remarks anicteric left carotid bruit lungs clear irregular rhythm, rate 40s abdomen soft, nontender extremities no edema neuro exam- unremarkable A/P Problem List: (1) Near syncope ICD Code: R55 Status: Acute (2) A-fib ICD Code: I48.91 Status: Chronic (3) CAD (coronary artery disease) ICD Code: I25.10 Status: Chronic (4) Hyperlipidemia ICD Code: E78.5 Status: Chronic (5) HTN (hypertension) ICD Code: I10 Status: Chronic Assessment and Plan 80 years old admitted for near syncope Atrial fibrillation in slow ventricular rate- 30-40s Symptomatic bradycardia Cardiology ff. PM today Eliquis- discontinued Right carotid stenosis plan for CEA- Vascular surgery ff after PM placement Hypertensive urgency- better amlodipine 10 mg daily Lisinopril 2.5 mg po daily- increase to 10 mg daily prn IV Vasotec with BP greater than 180/90 no BB, clonidine due to bradycardia Acute Kidney Injury- improved. good po Heplock IV History of BPH Terazosin at 5 mg hs- should help with his BP Coreen Rolon MD Jun 24, 2016 12:02
[2016-06-24] MEDS ORDERED: SODIUM CHLORIDE 0.9% FLUSH 5 ML FLUSH IVF PRN (13:15)
[2016-06-24] MEDS ORDERED: MIDAZOLAM HCL 2 MG/2 ML VIAL ONE (13:30)
[2016-06-24] MEDS ORDERED: PROPOFOL 200 MG/20 ML AMP IV ONE (13:53)
[2016-06-24] MEDS ORDERED: ePHEDrine/NS 25 MG/5 ML SYR IV ONE (13:53)
[2016-06-24] MEDS ORDERED: SODIUM CHLORIDE 0.9% FLUSH 5 ML FLUSH IVF SCH (21:00)
[2016-06-24] MEDS: TERAZOSIN HCL 5 MG CAP PO SCH (21:12)
[2016-06-24] MEDS: ATORVASTATIN 20 MG TAB PO SCH (21:12)
[2016-06-24] MEDS: ceFAZolin 2 GM PREMIX 50 ML IV SCH (21:12)
[2016-06-24] MEDS ORDERED: KETOROLAC TROMETHAMINE 30 MG/ML (IVP) VIAL IV PUSH ONE (21:30)
[2016-06-24 22:22] LABS: BLOOD, URINE TRACE (NEG); GLUCOSE,URINE NEG (NEG); KETONE, URINE 10 mg/dL (NEG); NITRITE,URINE NEG (NEG); PH, URINE 5.5 (5.0-8.5); URINE COLOR YELLOW (YELLW/STRAW)
[2016-06-24 22:23] LABS: COMMENT (UR) CATH-CULT NOT IND; CULTURE IF INDICATED CATH CULTURE NOT IND
--- NOTE | 2016-06-24 23:55 | HM ---
Date Performed: 06/21/2016 Time Performed: 09:35:00 HOOKUP DATE: 06/21/16 09:35:00 AM Tue ANALYSIS START TIME: 06/21/2016 9:40:00 AM ANALYSIS END TIME: 06/22/2016 9:43:59 AM PATIENT AGE: 80 PATIENT HEIGHT PATIENT WEIGHT DRUG LIST PATIENT DIAGNOSIS: bradycardia near syncope TEST NARRATIVE: The patient's average heart rate was 40 BPM. No episodes of tachycardia wer e noted. Heart rates less than 50 BPM were noted 94% of the time. 928 pauses exceeding 2.0 seco nds were noted. The longest pause of 3.3 seconds occurred at 12:34:18 AM Wed. 1275 ventricular ec topics, which represented 2% of the total beat count, were noted. The highest ventricular ectopic fr equency occurred from 06:00 PM to 07:00 PM Tue. During this time 509 VE(s) occurred. Ventricular ec topics were observed as 1257 isolated beat(s) and as 9 couplet(s). No runs were noted. Some of the ventricular beats occurred in bigeminal cycles. 7 supraventricular ectopics, which represented < 1% of the total beat count, were noted. The highest supraventricular ectopic frequency occurred from 12:00 AM to 01:00 AM Wed. During this time 4 SVE(s) occurred. In channel 1, a single episode of ST depression (defined as -1.0 mm or more) occurred at 06:33:21 PM Tue with a maximum depression of -5.9 mm. No episodes of ST depression (defined as -1.0 mm or more) were noted in channel 2. No epis odes of ST depression (defined as -1.0 mm or more) were noted in channel 3. TEST INTERPRETATION: Sinus rhythm Severe sinus bradycardia Junctional rhythm Multiple PVCs Patient may need pacing support if symptoma tic. Signed by : Yessica Esquivel
[2016-06-25] VITALS (26 sets, daily range): BP systolic 16–177; BP diastolic 74–85; PULSE 59–74; RESP 16–20; TEMP 97.5–99; O2SAT 97–100
[2016-06-25] MEDS ORDERED: VANCOMYCIN INJ 1,000 MG in SODIUM CHLOR 0.9% 250 ML INJ 250 ML IV ONE ×2
[2016-06-25] MEDS: SODIUM CHLORIDE 0.9% FLUSH 5 ML FLUSH FLUSH SCH ×3 (00:40→20:38)
[2016-06-25] MEDS: ceFAZolin 2 GM PREMIX 50 ML IV SCH ×2 (02:36→11:32)
[2016-06-25] MEDS: ASPIRIN EC 81 MG TABEC PO SCH (08:50)
[2016-06-25] MEDS: DOCUSATE SODIUM 100 MG CAP PO SCH ×2 (08:50→20:38)
[2016-06-25] MEDS ORDERED: LISINOPRIL 10 MG TAB PO SCH (09:00)
--- NOTE | 2016-06-25 09:37 | HHI.PR ---
Subjective Remarks went into urinary retention last evening- straight cath done- 700 cc obtained patient voiding here but with incomplete bladder emptying sensation telemetry - paced rhythm history of BPH on Terazosin and OTC super beta prostate med Objective Vitals Vital Signs Date Time Temp Pulse Resp B/P Pulse Ox O2 Delivery O2 Flow Rate FiO2 06/25/16 07:00 60 06/25/16 06:00 68 06/25/16 05:00 60 06/25/16 04:00 97.8 74 20 155/78 99 06/25/16 04:00 74 06/25/16 03:00 64 06/25/16 02:00 59 06/25/16 01:00 59 06/25/16 00:00 66 06/25/16 00:00 97.7 60 20 146/74 99 06/24/16 23:00 60 06/24/16 22:00 90 06/24/16 21:00 62 06/24/16 20:00 71 06/24/16 19:00 100 Room Air 06/24/16 19:00 71 06/24/16 19:00 97.8 60 20 170/80 100 06/24/16 15:09 174/89 06/24/16 15:00 60 06/24/16 15:00 176/82 06/24/16 14:09 167/83 06/24/16 13:52 97.6 60 26 158/82 97 06/24/16 13:29 97.6 160/82 I/O 06/24/16 06/24/16 06/24/16 06/25/16 06/25/16 06/25/16 07:00 15:00 23:00 07:00 15:00 23:00 Intake Total 120 ml 600 ml 220 ml 920 ml Output Total 800 ml 450 ml 400 ml 950 ml Balance -680 ml 150 ml -180 ml -30 ml Intake Oral 120 ml 100 ml 220 ml 420 ml IV Total 500 ml 500 ml Output Urine Total 800 ml 450 ml 400 ml 950 ml # Bowel Movements 1 1 0 Result Diagram: 06/21/1640 06/21/1640 Imaging Last Impressions Head CT 06/20/16 1324 Signed Impressions: Service Date/Time: Monday, June 20, 2016 14:43 - CONCLUSION: Negative for an acute process.. Addi Zaldivar MD FACR Chest X-Ray 06/20/16 1324 Signed Impressions: Service Date/Time: Monday, June 20, 2016 13:50 - CONCLUSION: Cardiomegaly and previous CABG. Andreas Rebolledo MD Neck Magnetic Resonance Angiography 06/20/16 0000 Signed Impressions: Service Date/Time: Monday, June 20, 2016 21:13 - CONCLUSION: Significant plaque in the right carotid bifurcation with moderate to severe stenosis in the proximal ICA measuring in the 50-69%% range. Dominant right vertebral artery. No other significant abnormality. Pasha Thakkar MD Carotid Artery Ultrasound 06/20/16 0000 Signed Impressions: Service Date/Time: Monday, June 20, 2016 18:48 - CONCLUSION: Significant calcified and noncalcified plaque involving the carotid bifurcations. No Doppler evidence of significant stenosis however do to the amount of plaque further evaluation with CTA or MRA may be of benefit if there is high clinical suspicion of carotid stenosis. Antegrade flow the vertebral arteries. Pasha Thakkar MD Brain MRI 06/20/16 0000 Signed Impressions: Service Date/Time: Monday, June 20, 2016 18:15 - CONCLUSION: Unremarkable exam. No evidence of acute infarct, hemorrhage, mass, edema or enhancing lesions. Pasha Thakkar MD Objective Remarks anicteric left carotid bruit lungs clear paced rhythm abdomen soft, nontender extremities no edema neuro exam- unremarkable Procedures 06/24- PM placement Urinary Catheter: Yes Assessment to: Continue Alfredo insert reason: Obstruction/Retention Date of Insertion: Jun 25, 2016 A/P Problem List: (1) Near syncope ICD Code: R55 Status: Acute (2) A-fib ICD Code: I48.91 Status: Chronic (3) CAD (coronary artery disease) ICD Code: I25.10 Status: Chronic (4) Hyperlipidemia ICD Code: E78.5 Status: Chronic (5) HTN (hypertension) ICD Code: I10 Status: Chronic Assessment and Plan 80 years old admitted for near syncope Atrial fibrillation in slow ventricular rate S/P PM 06/25. Eliquis on hold Right carotid stenosis plan for CEA- Vascular surgery for CEA- Monday Hypertension Amlodipine 10 mg daily Increase Lisinopril 10 mg bid prn IV Vasotec with BP greater than 170/90 no BB, clonidine- due to bradycardia Acute urinary retention- straight cath 06/24- 700cc obtained History of BPH- incomplete bladder emptying sensation On Terazosin as OP- continued here insert alfredo today 06/25- keep for surgery d/w Dr. Stone - started on Proscar Constipation- can contribute to urinary retention continue Colace Mg citrate x 1 patient up and ambulating Coreen Rolon MD Jun 25, 2016 09:36 Coreen Rolon MD Jun 25, 2016 09:36
[2016-06-25] MEDS ORDERED: TAMSULOSIN HCL 0.4 MG CAP PO SCH (10:00)
[2016-06-25] MEDS ORDERED: MAGNESIUM CITRATE SOLN 300 ML BTL PO ONE (10:15)
--- NOTE | 2016-06-25 12:23 | PD.CONS ---
HPI Service Urology Consult Requested By Reason for Consult Urinary retention Primary Care Physician No Primary Care Physician Diagnosis: (1) Near syncope ICD Code: R55 (2) A-fib ICD Code: I48.91 (3) CAD (coronary artery disease) ICD Code: I25.10 (4) Hyperlipidemia ICD Code: E78.5 (5) HTN (hypertension) ICD Code: I10 History of Present Illness 80 year-old gentleman with multiple medical problems including history of BPH managed with Hytrin who was admitted for further workup of dizziness and lightheadedness. Patient was evaluated by cardiology for pacemaker insertion and also evaluated by vascular surgery for carotid artery stenosis. Patient is scheduled to undergo a carotid endarterectomy on Monday. During the course of his hospitalization the patient was taken off the Hytrin and soon thereafter developed progressive difficulty with urination. The symptoms became worse to the point where he complained of suprapubic pain and inability to void. Straight catheterization at that time demonstrated evacuation of 700 cc urine. An indwelling Acosta catheter was subsequently placed as well as a urology consult for further recommendations. At the time of consultation the patient was resting quietly and in no acute distress and tolerating the indwelling Acosta catheter well. He reports that he has been on the Hytrin for several years and has been maintaining an acceptable voiding pattern. He also reports having his PSA readings monitored with a history of slight elevation the past with subsequent normalization. He denies dysuria or gross hematuria. Review of Systems Constitutional: COMPLAINS OF: Dizziness, DENIES: Fever, Chills Eyes: COMPLAINS OF: Diplopia Cardiovascular: DENIES: Chest pain, Palpitations Gastrointestinal: DENIES: Abdominal pain Genitourinary: DENIES: Hematuria, Dysuria Musculoskeletal: DENIES: Back pain Except as stated in HPI: all other systems reviewed are Neg Past Family Social History Past Medical History BPH Hypertension Bradycardia Coronary artery disease Hyperlipidemia Past Surgical History Status post CABG Reported Medications Refer to EMR Allergies: Coded Allergies: No Known Allergies (Unverified , 07/06/14) Active Ordered Medications Refer to EMR Family History Lung cancer Cardiac disease Social History Former smoker who quit in 1968 Denies alcohol abuse Denies intravenous drug abuse Physical Exam Vital Signs Vital Signs Date Time Temp Pulse Resp B/P Pulse Ox O2 Delivery O2 Flow Rate FiO2 06/25/16 11:58 97.6 63 16 161/78 99 06/25/16 11:00 59 06/25/16 10:00 62 06/25/16 09:00 68 06/25/16 08:00 97.7 61 16 177/81 100 06/25/16 08:00 60 06/25/16 08:00 100 Room Air 06/25/16 07:00 60 06/25/16 06:00 68 06/25/16 05:00 60 06/25/16 04:00 97.8 74 20 155/78 99 06/25/16 04:00 74 06/25/16 03:00 64 06/25/16 02:00 59 06/25/16 01:00 59 06/25/16 00:00 66 06/25/16 00:00 97.7 60 20 146/74 99 06/24/16 23:00 60 06/24/16 22:00 90 06/24/16 21:00 62 06/24/16 20:00 71 06/24/16 19:00 100 Room Air 06/24/16 19:00 71 06/24/16 19:00 97.8 60 20 170/80 100 06/24/16 15:09 174/89 06/24/16 15:00 60 06/24/16 15:00 176/82 06/24/16 14:09 167/83 06/24/16 13:52 97.6 60 26 158/82 97 06/24/16 13:29 97.6 160/82 Physical Exam GENERAL: This is a well-nourished, well-developed patient, in no apparent distress. SKIN: No rashes, ecchymoses or lesions. Cool and dry. HEAD: Atraumatic. Normocephalic. No temporal or scalp tenderness. EYES: Pupils equal round and reactive. Extraocular motions intact. No scleral icterus. No injection or drainage. ENT: Nose without bleeding, purulent drainage or septal hematoma. Throat without erythema, tonsillar hypertrophy or exudate. Uvula midline. Airway patent. NECK: Trachea midline. No JVD or lymphadenopathy. Supple, nontender, no meningeal signs. GASTROINTESTINAL: Abdomen soft, non-tender, nondistended. No hepato-splenomegaly , or palpable masses. No guarding. GENITOURINARY: Bladder not distended. Acosta catheter in place draining clear yellow urine. Prostate greater than 40 g, smooth and without nodules. MUSCULOSKELETAL: Extremities without clubbing, cyanosis, or edema. No joint tenderness, effusion, or edema noted. No calf tenderness. Negative Homans sign bilaterally. NEUROLOGICAL: Awake and alert. Cranial nerves II through XII intact. Motor and sensory grossly within normal limits. Five out of 5 muscle strength in all muscle groups. Normal speech. Laboratory Laboratory Tests Test 06/24/16 21:30 Urine Color YELLOW Urine Turbidity CLEAR Urine pH 5.5 Urine Specific [place] 1.011 Urine Protein TRACE Urine Glucose (UA) NEG Urine Ketones 10 Urine Occult Blood TRACE Urine Nitrite NEG Urine Bilirubin NEG Urine Urobilinogen LESS THAN 2.0 Urine Leukocyte Esterase NEG Urine RBC 2 Urine WBC LESS THAN 1 Microscopic Urinalysis Comment CATH-CULT NOT IND Result Diagram: 06/21/1640 06/21/16939 Assessment and Plan Assessment and Plan Urologic impression: Urinary retention related to BPH exacerbated by discontinuation of the Hytrin Recommendations: #1 agree with resumption of the Hytrin 5 mg daily #2 we'll add finasteride 5 mg by mouth daily in an effort to shrink the size of the prostate #3 DC the Flomax #4 maintain Acosta catheter to gravity drainage and discontinue for voiding trial after patient convalesces from his upcoming carotid endarterectomy #5 outpatient follow up Crow Stone MD Jun 25, 2016 12:23
[2016-06-25] MEDS: TERAZOSIN HCL 5 MG CAP PO SCH (20:38)
[2016-06-25] MEDS: LISINOPRIL 10 MG TAB PO SCH (20:38)
[2016-06-25] MEDS: ATORVASTATIN 20 MG TAB PO SCH (20:38)
[2016-06-26] VITALS (26 sets, daily range): BP systolic 128–162; BP diastolic 66–81; PULSE 58–63; RESP 12–18; TEMP 97.9–98.6; O2SAT 97–100
[2016-06-26] MEDS: FINASTERIDE 5 MG TAB PO SCH (08:02)
[2016-06-26] MEDS: LISINOPRIL 10 MG TAB PO SCH ×2 (08:02→20:20)
[2016-06-26] MEDS: DOCUSATE SODIUM 100 MG CAP PO SCH ×2 (08:02→20:20)
[2016-06-26] MEDS: SODIUM CHLORIDE 0.9% FLUSH 5 ML FLUSH FLUSH SCH ×2 (08:03→20:20)
[2016-06-26] MEDS: ASPIRIN EC 81 MG TABEC PO SCH (08:03)
--- NOTE | 2016-06-26 09:19 | HHI.PR ---
Subjective Remarks No acute events overnight. Afebrile, vital signs stable. Denies chest pain, shortness of breath. Alfredo in place. Tolerating by mouth. Last bowel movement was this morning. Objective Vitals Vital Signs Date Time Temp Pulse Resp B/P Pulse Ox O2 Delivery O2 Flow Rate FiO2 06/26/16 07:00 60 06/26/16 06:00 60 06/26/16 05:00 60 06/26/16 04:00 60 06/26/16 03:00 98.3 63 12 148/81 97 06/26/16 03:00 60 06/26/16 02:00 60 06/26/16 01:00 60 06/26/16 00:00 60 06/25/16 23:00 99.0 60 16 155/78 97 06/25/16 23:00 60 06/25/16 22:00 60 06/25/16 21:00 62 06/25/16 20:00 59 06/25/16 19:00 99 Room Air 06/25/16 19:00 98.4 59 18 168/85 99 Manual Cuff/Auscultation 06/25/16 19:00 60 06/25/16 18:00 60 06/25/16 17:00 60 06/25/16 16:00 60 06/25/16 15:55 97.5 63 16 165/80 98 06/25/16 15:00 60 06/25/16 14:00 60 06/25/16 13:10 60 06/25/16 12:00 60 06/25/16 11:58 97.6 63 16 161/78 99 06/25/16 11:00 59 06/25/16 10:00 62 I/O 06/25/16 06/25/16 06/25/16 06/26/16 06/26/16 06/26/16 07:00 15:00 23:00 07:00 15:00 23:00 Intake Total 920 ml 720 ml 480 ml Output Total 950 ml 2300 ml 651 ml Balance -30 ml -1580 ml -171 ml Intake Oral 420 ml 720 ml 480 ml IV Total 500 ml Output Urine Total 950 ml 2300 ml 650 ml Stool Total 1 ml # Bowel Movements 0 1 Objective Remarks Gen.: No acute distress Head: Normocephalic. Atraumatic. EENT: Pupils equal round and reactive to light. Nose without drainage. Airway intact. Throat without injection. Cardiovascular: Regular rate and rhythm. No murmurs, rubs or gallops. Respiratory: Lungs clear to auscultation bilaterally. No wheezes or rhonchi. Abdomen: Soft, nontender, nondistended. No peritoneal signs. Musculoskeletal: No gross deformities. No edema. Skin: No obvious rashes or erythema. Neuro: Sensory and motor grossly intact. Cranial nerves II through XII grossly intact. Psych: Appropriate mood and affect Procedures 06/24- PM placement Date of Insertion: Jun 25, 2016 A/P Problem List: (1) Near syncope ICD Code: R55 Status: Acute (2) A-fib ICD Code: I48.91 Status: Chronic (3) CAD (coronary artery disease) ICD Code: I25.10 Status: Chronic (4) Hyperlipidemia ICD Code: E78.5 Status: Chronic (5) HTN (hypertension) ICD Code: I10 Status: Chronic Assessment and Plan 80 years old admitted for near syncope Atrial fibrillation in slow ventricular rate S/P PM 06/25. Eliquis on hold Right carotid stenosis plan for CEA- Vascular surgery for CEA- Monday Hypertension Amlodipine 10 mg daily Increase Lisinopril 10 mg bid prn IV Vasotec with BP greater than 170/90 no BB, clonidine- due to bradycardia Acute urinary retention- straight cath 06/24- 700cc obtained History of BPH- incomplete bladder emptying sensation On Terazosin as OP- continued here insert alfredo today 06/25- keep for surgery d/w Dr. Stone - started on Proscar Constipation- can contribute to urinary retention. Last bowel movement this morning. continue Colace patient up and ambulating Discharge Planning After CVA likely Monday or Monday Lisa Winslow MD R3 Jun 26, 2016 09:19
--- NOTE | 2016-06-26 09:55 | MP ---
cc: SONIDO MALDONADO DATE OF SURGERY: 06/24/2016 INDICATION 1. Atrial fibrillation with severe symptomatic bradycardia. 2. Sick sinus syndrome with severe symptomatic bradycardia. 3. Coronary artery disease, history of coronary artery bypass. PROCEDURE PERFORMED Placement of [employer] Jarrod single chamber MRI compatible pacemaker. ACCESS SITE Left subclavian vein. EQUIPMENT USED Generator is [employer] Jarrod, model [id number], MRI compatible single-chamber pacemaker. Ventricular lead is [employer] Jarrod, model [id number], 68 cm screw-in MRI compatible ventricular lead, serial number [id number]. LEAD TESTING Right ventricular lead: R-wave 9.5 millivolts, lead impedance 650 ohms, pacing threshold 0.75 volts at 0.5 milliseconds. Pacing at 10 volts, no diaphragmatic stimulation. PARAMETERS Mode VVIR, lower rate 60. DIAGNOSIS Successful placement of [employer] Jarrod single-chamber MRI compatible pacemaker. DISPOSITION Mr. Velasquez will be monitored on telemetry after his procedure. He will stay off Eliquis until his carotid endarterectomy by Dr. Parker. I will see him back for a wound check and chronic device reprogramming in our office within three weeks. MD MARLY Jarvis/DIMA /1:08 PM /9:27 AM PAOLO
[2016-06-26] MEDS: TERAZOSIN HCL 5 MG CAP PO SCH (20:20)
[2016-06-26] MEDS: ATORVASTATIN 20 MG TAB PO SCH (20:20)
[2016-06-26] MEDS ORDERED: LACTATED RINGER'S 1000 ML IV SCH (22:00)
[2016-06-26] MEDS ORDERED: SODIUM CHLORID 0.9% 500 ML IV SCH (22:00)
[2016-06-26] MEDS ORDERED: INSULIN HUMAN REGULAR 1,000 UNITS/10 ML VIAL SQ PRN (22:00)
[2016-06-26] MEDS ORDERED: METOPROLOL TARTRATE 25 MG TAB PO PRN (22:00)
[2016-06-27] VITALS (15 sets, daily range): BP systolic 134–170; BP diastolic 51–88; PULSE 59–69; RESP 14–18; TEMP 97.3–98.7; O2SAT 97–98
[2016-06-27] MEDS: DOCUSATE SODIUM 100 MG CAP PO SCH ×2 (09:00→21:00)
[2016-06-27] MEDS: FINASTERIDE 5 MG TAB PO SCH (09:00)
[2016-06-27] MEDS: LISINOPRIL 10 MG TAB PO SCH (09:00)
[2016-06-27] MEDS ORDERED: LISINOPRIL 10 MG TAB PO ONE (11:00)
[2016-06-27] MEDS ORDERED: NEOSTIGMINE 3 MG/3 ML SYR IV ONE (12:00)
[2016-06-27] MEDS ORDERED: PHENYLEPH/NS 1000 MCG/10 ML SYR IV ONE (12:00)
[2016-06-27] MEDS ORDERED: PROTAMINE SULFATE 50 MG/5 ML VIAL IV ONE (12:00)
[2016-06-27] MEDS ORDERED: SODIUM CHLORID 0.9% 500 ML INJ 500 ML IV ONE (12:00)
[2016-06-27] MEDS ORDERED: LACTATED RINGER'S 1000 ML INJ 1,000 ML IV ONE (12:00)
[2016-06-27] MEDS ORDERED: LIDOCAINE HCL 1% 50 ML VIAL ONE (12:23)
[2016-06-27] MEDS ORDERED: HEPARIN SODIUM - SQ 10,000 UNITS/ML VIAL ONE (12:23)
[2016-06-27] MEDS ORDERED: PROTAMINE SULFATE 50 MG/5 ML VIAL ONE (12:23)
[2016-06-27] MEDS ORDERED: HEPARIN SODIUM - IV 10,000 UNITS/10 ML VIAL ONE (12:27)
--- NOTE | 2016-06-27 12:39 | HHI.PR ---
Subjective Remarks Patient doing well resting on a chair, he was concerned about his blood pressure this morning was high 167/81 Patient going for right CEA today, he denied chest in fever or chills Elliquis on hold Please with A. fib status He denied chest anal short of breath or fever or chills Objective Vitals Vital Signs Date Time Temp Pulse Resp B/P Pulse Ox O2 Delivery O2 Flow Rate FiO2 06/27/16 06:00 60 06/27/16 05:00 60 06/27/16 04:00 60 06/27/16 03:00 97.9 60 14 153/78 98 06/27/16 03:00 60 06/27/16 02:00 60 06/27/16 01:00 60 06/27/16 00:00 60 06/26/16 23:00 60 06/26/16 23:00 98.1 60 12 154/76 98 06/26/16 22:00 60 06/26/16 21:00 60 06/26/16 20:00 60 06/26/16 19:00 98.6 60 18 162/79 100 06/26/16 19:00 100 Room Air 06/26/16 19:00 59 06/26/16 18:05 60 06/26/16 17:11 60 06/26/16 16:10 63 06/26/16 15:30 97.9 60 16 160/75 100 06/26/16 15:00 60 06/26/16 14:00 60 06/26/16 13:00 60 I/O 06/26/16 06/26/16 06/26/16 06/27/16 06/27/16 06/27/16 07:00 15:00 23:00 07:00 15:00 23:00 Intake Total 480 ml 1500 ml 480 ml Output Total 651 ml 500 ml 1800 ml Balance -171 ml 1000 ml -1320 ml Intake Oral 480 ml 1500 ml 480 ml Output Urine Total 650 ml 500 ml 1800 ml Stool Total 1 ml # Bowel Movements 1 Objective Remarks GENERAL: This is a well-nourished, well-developed patient, in no apparent distress. SKIN: No rashes, warm and dry HEAD: Atraumatic. Normocephalic. EYES: Pupils equal round and reactive. Extraocular motions intact. No scleral icterus. ENT: Nose without bleeding, or drainage, Airway patent. NECK: Trachea midline. Supple CARDIOVASCULAR: Regular rate and rhythm without murmurs, gallops, or rubs. RESPIRATORY: Fair air entry bilaterally. No wheezes, rales, or rhonchi. GASTROINTESTINAL: Abdomen soft, non-tender, nondistended. Positive bowel sounds MUSCULOSKELETAL: Extremities without clubbing, cyanosis, or edema. Pedal pulses appreciated NEUROLOGICAL: Awake and alert. Moves all extremity. Normal speech.no focal neurological deficit Procedures 06/24- PM placement Date of Insertion: Jun 25, 2016 A/P Problem List: (1) Near syncope ICD Code: R55 Status: Acute (2) A-fib ICD Code: I48.91 Status: Chronic (3) CAD (coronary artery disease) ICD Code: I25.10 Status: Chronic (4) Hyperlipidemia ICD Code: E78.5 Status: Chronic (5) HTN (hypertension) ICD Code: I10 Status: Chronic Assessment and Plan 06/27/16: Increase lisinopril, plan for CEA on the right today A/P: 80 years old admitted for near syncope Atrial fibrillation in slow ventricular rate S/P PM 06/25. Eliquis on hold Right carotid stenosis plan for CEA- Vascular surgery for CEA-06/27/16 Hypertension uncontrolled Amlodipine 10 mg daily Increase Lisinopril 20 mg bid prn IV Vasotec with BP change parameter to 160/90 no BB, clonidine- due to bradycardia Acute urinary retention- straight cath 06/24- 700cc obtained, urology following History of BPH- incomplete bladder emptying sensation On Terazosin as OP- continued here insert alferdo today 06/25- keep for surgery d/w Dr. Stone - started on Proscar Constipation- can contribute to urinary retention continue Colace Mg citrate x 1 patient up and ambulating Jadiel Clements MD Jun 27, 2016 12:39
[2016-06-27] MEDS ORDERED: DO NOT ADM ANY ANTICOAGULANT DRUGS XX PRN (15:20)
[2016-06-27] MEDS ORDERED: *LABETALOL HCL 100 MG/20 ML VIAL PERIprocedural Use ONLY ONE ×3 (15:33→15:45)
[2016-06-27] MEDS ORDERED: fentaNYL CITRATE 250 MCG/5 ML AMP ONE (15:37)
[2016-06-27] MEDS ORDERED: *ENALAPRILAT 1.25 MG/ML VIAL PERIprocedural Use ONLY ONE (15:45)
[2016-06-27] MEDS ORDERED: *morphine SULFATE 8 MG/ML PERIprocedure ONLY ONE ×3 (15:47→16:47)
[2016-06-27] MEDS: SODIUM CHLOR 0.9% 1000 ML INJ 1,000 ML IV SCH (16:59)
[2016-06-27] MEDS: niCARdipine 25 MG/NS 250 ML Vial2Bag or IV room IV SCH ×4 (17:00→21:55)
[2016-06-27] MEDS ORDERED: ONDANSETRON HCL 4 MG/2 ML VIAL IV PUSH PRN (20:00)
[2016-06-27] MEDS: LISINOPRIL 20 MG TAB PO SCH (20:28)
[2016-06-27] MEDS: APIXABAN 5 MG TABLET PO SCH (20:28)
[2016-06-27] MEDS: ATORVASTATIN 20 MG TAB PO SCH (20:28)
[2016-06-27] MEDS: SODIUM CHLORIDE 0.9% FLUSH 5 ML FLUSH FLUSH SCH (20:28)
[2016-06-27] MEDS ORDERED: MORPHINE SULFATE 4 MG/ML INJ IV PUSH STA (20:29)
[2016-06-27] MEDS: oxyCODONE/ACETAMINOPHEN 5 MG/325 MG TAB PO PRN (20:29)
[2016-06-27] MEDS: MORPHINE SULFATE 4 MG/ML INJ IV PUSH PRN (20:29)
[2016-06-27] MEDS: TERAZOSIN HCL 5 MG CAP PO SCH (21:00)
[2016-06-28] VITALS (11 sets, daily range): BP systolic 136–158; BP diastolic 49–80; PULSE 58–63; RESP 16–20; TEMP 97.4–98.5; O2SAT 93–97
[2016-06-28] MEDS: niCARdipine 25 MG/NS 250 ML Vial2Bag or IV room IV SCH ×10 (01:21→14:58)
[2016-06-28] MEDS: SODIUM CHLOR 0.9% 1000 ML INJ 1,000 ML IV SCH ×3 (03:00→17:00)
[2016-06-28 05:06] LABS: AUTOMATED NEUTROPHIL # 4.3 TH/MM3 (1.8-7.7); BASOPHIL % 0.3 % (0.0-2.0); EOSINOPHIL # 0.2 TH/MM3 (0-0.4); EOSINOPHIL % 2.9 % (0.0-4.0); HEMATOCRIT 36.6 % (39.0-51.0); HEMO FLAGS DIFF FINAL; LYMPH % 15.2 % (9.0-44.0); LYMPHOCYTE # 0.9 TH/MM3 (1.0-4.8); MEAN CORPUSCULAR HEMOGLOBIN 32.4 PG (27.0-34.0); MEAN CORPUSCULAR HGB CONC 34.5 % (32.0-36.0); MONO % 10.4 % (0.0-8.0); NEUT % 71.2 % (16.0-70.0); PLATELET COUNT 100 TH/MM3 (150-450); RED BLOOD COUNT 3.89 MIL/MM3 (4.50-5.90); RED CELL DISTRIBUTION WIDTH 13.7 % (11.6-17.2); WHITE BLOOD COUNT 6.1 TH/MM3 (4.0-11.0)
[2016-06-28] MEDS: MORPHINE SULFATE 4 MG/ML INJ IV PUSH PRN (05:23)
[2016-06-28] MEDS: oxyCODONE/ACETAMINOPHEN 5 MG/325 MG TAB PO PRN ×2 (07:29→21:49)
[2016-06-28] MEDS: ENALAPRILAT 1.25 MG/ML VIAL IV PUSH PRN (07:44)
[2016-06-28] MEDS: ASPIRIN EC 81 MG TABEC PO SCH ×2 (09:00→09:14)
[2016-06-28] MEDS: FINASTERIDE 5 MG TAB PO SCH (09:13)
[2016-06-28] MEDS: APIXABAN 5 MG TABLET PO SCH ×2 (09:13→20:04)
[2016-06-28] MEDS: DOCUSATE SODIUM 100 MG CAP PO SCH ×2 (09:13→20:04)
[2016-06-28] MEDS: SODIUM CHLORIDE 0.9% FLUSH 5 ML FLUSH FLUSH SCH ×2 (09:13→20:04)
[2016-06-28] MEDS: LISINOPRIL 20 MG TAB PO SCH ×2 (09:15→20:04)
[2016-06-28] MEDS ORDERED: PROPOFOL 200 MG/20 ML AMP IV ONE (12:00)
[2016-06-28] MEDS ORDERED: cloNIDine HCL 0.2 MG/24 HR PATCH TD SCH (12:00)
--- NOTE | 2016-06-28 12:01 | MP ---
cc: JOSH ROSALES MD DATE OF SURGERY 06/27/2016 PREOPERATIVE DIAGNOSES Transient ischemic attack. Right internal carotid artery stenosis. POSTOPERATIVE DIAGNOSES Transient ischemic attack. Right internal carotid artery stenosis. OPERATIVE PROCEDURE Right carotid endarterectomy. SURGEON MD Keith ANESTHESIA General. ESTIMATED BLOOD LOSS 150 mL. PROCEDURE The patient was prepped and draped in the usual fashion, a right presternal/cleidomastoid incision made, deepened down through the platysma to the level of the facial vein which is ligated and divided. The carotid sheath was entered. The common carotid, internal and external carotid arteries are isolated sharply with Metzenbaum scissors. Even during the isolation it is noted that the patient does have large a plaque which is very firm and occludes and nearly pops out of the right internal carotid artery. It is yellowish and firm. Umbilical tapes are now placed with lamellar retractors on the respective vessels. The patient is given 7000 units of heparin. The hypoglossal nerve is carefully identified and preserved. Retractors are now positioned and now clamps applied, bulldog to the internal carotid artery and the DeBakey clamps to common carotid artery. The vessel is opened longitudinally with Holloway scissors and then an [place] shunt is immediately placed and blood flow reestablished. The plaque is now observed. This is a hard, calcific plaque with a rough surface occupying most of the internal carotid artery, looking much worse than actual MRI. The plaque extends about an inch into the internal carotid artery and then about 1-1/2 inches into the common carotid artery. It is eccentric and extremely crumbly. The plaque is now dissected in the media plane using Ben Wheeler dissector and then removed in one piece and sent for pathology. The area is irrigated with saline. Meticulous care taken to remove all the debris and then intima is cut sharply. The intima is tightly bound in the internal carotid artery. No stay stitches are needed here. The patient has a huge carotid artery and there is no need to place a patch. The area is irrigated with copious amounts of saline and with [place], all the debris removed and then vessel repaired with running 5-0 Prolene. Prior to completion the [place] shunt is removed, the vessel atherotomy closure completed and then blood flow reestablished in the usual order and fashion preventing embolization to the brain. Pulses checked with the Doppler and the patient has a brisk signal in all three vessels. A piece of Surgicel was placed over the vessel, a BRANDY drain placed and then incision closed with 2-0 Vicryl in layers and 4-0 Monocryl for skin. Dermabond applied. The patient tolerated the procedure well in the recovery room. The patient is awake, alert, neurologically fully intact. Josh PEPE/NELLI /6:00 PM /11:50 AM
[2016-06-28] MEDS ORDERED: TERA5CAP3 PO (12:28)
[2016-06-28] MEDS ORDERED: OXYC1TAB63 PO (12:28)
[2016-06-28] MEDS ORDERED: FINA5TAB2 PO (12:28)
[2016-06-28] MEDS ORDERED: ASPI81TA11 PO (12:28)
[2016-06-28] MEDS ORDERED: CLON.2T TD (12:28)
--- NOTE | 2016-06-28 12:31 | HHI.DS ---
Discharge Summary Admission Date Jun 21, 2016 at 10:51 Discharge Date: Jun 30, 2016 Admitting Diagnosis near syncope, Bradycardia (1) Near syncope ICD Code: R55 (2) A-fib ICD Code: I48.91 (3) CAD (coronary artery disease) ICD Code: I25.10 (4) Hyperlipidemia ICD Code: E78.5 (5) HTN (hypertension) ICD Code: I10 Procedures 06/24- PM placement CEA 06/27 Brief History - From Admission This is a pleasant 80-year-old gentleman with a past medical history which includes hypertension, bradycardia, hyperlipidemia, CAD status post coronary artery bypass graft, BPH. EKG in the emergency department reveals atrial fibrillation rate in the 30s. Patient doesn't recall having atrial fibrillation before but reports his facilities manager started him on Eliquis for prevention of blood clots. Patient reports he is in his normal state of health he was walking on the beach his normal 6-8 miles every day about 4 miles and he became dizzy and lightheaded had to sit down. Patient reports he stood up and felt continued to feel dizzy therefore he called 911 to be transported to the emergency department for further evaluation and treatment. Patient reports while he was waiting for the ambulance to arrive he began to have double vision. Patient reports that when he closes one eye the double vision goes away. Patient reports that dizziness have improved with the double vision is still present. Patient reports the double vision is worse with worse with images faraway. Patient reports sinus and this episode he did not feel any shortness of breath chest pain nausea vomiting diarrhea constipation fevers chills or diaphoresis. Patient reports no facial asymmetry confusion a slurred speech loss of bowel or bladder control. CBC/BMP: 06/28/16 0445 Significant Findings Laboratory Tests Test 06/28/16 04:45 Red Blood Count 3.89 MIL/MM3 (4.50-5.90) Hemoglobin 12.6 GM/DL (13.0-17.0) Hematocrit 36.6 % (39.0-51.0) Platelet Count 100 TH/MM3 (150-450) Neutrophils (%) (Auto) 71.2 % (16.0-70.0) Monocytes (%) (Auto) 10.4 % (0.0-8.0) Lymphocytes # (Auto) 0.9 TH/MM3 (1.0-4.8) PE at Discharge GENERAL: This is a well-nourished, well-developed patient, in no apparent distress. SKIN: No rashes, warm and dry HEAD: Atraumatic. Normocephalic. EYES: Pupils equal round and reactive. Extraocular motions intact. No scleral icterus. ENT: Nose without bleeding, or drainage, Airway patent. NECK: Trachea midline. Supple CARDIOVASCULAR: Regular rate and rhythm without murmurs, gallops, or rubs. RESPIRATORY: Fair air entry bilaterally. No wheezes, rales, or rhonchi. GASTROINTESTINAL: Abdomen soft, non-tender, nondistended. Positive bowel sounds MUSCULOSKELETAL: Extremities without clubbing, cyanosis, or edema. Pedal pulses appreciated NEUROLOGICAL: Awake and alert. Moves all extremity. Normal speech.no focal neurological deficit Hospital Course 80 years old admitted for near syncope he has Atrial fibrillation in slow ventricular rate cardiology consulted S/P PM 06/25, Right carotid stenosis, [facility] s/p CEA- Vascular surgery -06/27/16 Hypertension uncontrolled Amlodipine 10 mg daily Increase Lisinopril 20 mg bid prn IV Vasotec with BP change parameter to 160/90 no BB, clonidine- due to bradycardia Acute urinary retention- straight cath 06/24- 700cc obtained, urology following History of BPH- incomplete bladder emptying sensation On Terazosin as OP- continued here insert alfredo today 06/25- keep for surgery Dr. Stone - started on Proscar Constipation- can contribute to urinary retention continue Colace Mg citrate x 1 on 06/29/16: pt had urin retention 800 cc BS, foly in , urology rec dc with it , c F-F inserted , cardiology wants to see pt today to further aDJUST bp MEDS , HE IS AT 160/81 now i d/w nurse , dc order placed on 06/30/16 pt bp improved , [facility] by [facility] , cardiology for dc [id number] encounter performed with the patient on discharge day, as well as physical exam, summary of hospitalization course and postdischarge plan has been D/W the patient. D/W nurse D/W case fitter. Discharge medications reviewed and printed and signed, post discharge follow up visit with PCP and other specialist as well as Brief hospital course and discharge summary has been placed. Pt Condition on Discharge: Fair Discharge Disposition: Discharge Home Discharge Time: > 30 minutes Discharge Instructions New Medications: Aspirin DR (Aspirin EC) 81 Mg Tabdr 81 MG PO DAILY pad #30 TAB Clonidine 168 HR Patch ([id number] 168 HR Patch) 0.2 Mg/24 Hr Patch 1 PATCH TD Q7D htn #4 PATCH Finasteride (Finasteride) 5 Mg Tab 5 MG PO DAILY . #30 TAB Lisinopril (Lisinopril) 20 Mg Tab 20 MG PO BID htn #60 TAB Oxycodone-Acetaminophen (Oxycodone-Acetaminophen) 5-325 mg Tab 1 TAB PO Q4H PRN PAIN 1-5 #10 TAB Terazosin (Terazosin) 5 Mg Cap 5 MG PO HS htn #30 CAP Continued Medications: Amlodipine (Amlodipine) 5 Mg Tab 5 MG PO DAILY Blood Pressure Management #30 Ref 0 TAB Apixaban (Eliquis) 5 Mg Tab 5 MG PO BID Blood Clot Prevention #60 Ref 0 TAB Aspirin (Aspirin) 81 Mg Chew 81 MG CHEW DAILY Ref 0 TAB Atorvastatin (Lipitor) 20 Mg Tab 20 MG PO HS Cholesterol Management #30 Ref 0 TAB Glucosamine-Chondroitin (Glucosamine-Chondroitin) 500-400 Mg Cap 1 CAP PO DAILY Herbal Supplements Ref 0 CAP Multiple Vitamins W/ Minerals (Centravites 50 Plus) 1 Tab Tab Resveratrol (Resveratrol) 250 Mg Cap 500 MG PO DAILY Jadiel Clements MD Jun 28, 2016 12:31
--- NOTE | 2016-06-28 14:26 | PD.CAR.PN ---
CVT Progress Note Subjective/Hospital Course: This gentleman had a syncopal episode and it is very hard to tell where it is coming from. Most likely it is heart related. Perhaps the patient developed more profound bradycardia. On the other hand, it seems to be a lateralizing event so, hence, the slight confusion. On the other hand, the patient has a clear finding of about 70% right internal carotid artery stenosis. I reviewed the study myself and I think it might be actually a little higher degree of narrowing. Question now arises if this is an asymptomatic stenosis or not. At this point, I believe it is irrelevant. The patient is in a very good physical shape. Cardiac workup takes precedence and I would allow Dr. Ng to do whatever needs to be done for the heart. In this particular situation, this patient might benefit from pacemaker placement but I would leave that up to cardiology. Once the heart is handled, I believe in face of 70% carotid artery stenosis and even questionable symptoms, the patient all things equal should be offered right carotid endarterectomy. Therefore, my plan is to allow cardiology to finish the workup on the patient, any diagnostic or therapeutic procedure that might be needed and then I intend to proceed with carotid endarterectomy. 06/22/16 Had a long discussion with the patient and today discussed the case with Dr. ng Patient was on Eliquis for his A. fib so he will undergo pacemaker placement on Monday. I will follow with a carotid right endarterectomy thereafter probably on Monday or Monday without restarting anticoagulants in the meantime This is the safest approach to this situation In addition I reviewed the MRI and the the degree of stenosis is probably somewhat larger than 70% 06/23/2016 Discussed the case with the patient and Dr. Ng Patient will undergo placement of a pacemaker on Monday and I will follow with the right carotid endarterectomy on Monday On the other hand if patient wants to go home on anticoagulants I can always bring him back in the future for carotid endarterectomy I will give patient some time to recover 06/28/16 Patient status post right carotid endarterectomy Incision is clean and dry BRANDY has been removed TEX Acosta Patient is neurologically fully intact The only reason patient still in ICU is the control of the hypertension for which patient still receives Cardene drip Additional Catapres patch will probably fix this and patient will be able to go to the floor and then be discharged Doing very well at this time Objective: Vital Signs Date Time Temp Pulse Resp B/P Pulse Ox O2 Delivery O2 Flow Rate FiO2 06/28/16 11:08 97.9 58 16 136/73 97 157/49 06/28/16 11:07 58 06/28/16 11:07 95 Nasal Cannula 3.00 06/28/16 07:49 96 Nasal Cannula 2.00 06/28/16 07:39 98.5 60 16 143/72 97 158/55 06/28/16 07:33 97 Nasal Cannula 3.00 06/28/16 07:33 61 06/28/16 03:23 98.2 60 17 138/69 97 151/54 06/28/16 03:23 97 Nasal Cannula 3.00 06/28/16 03:23 59 06/27/16 23:39 97 Nasal Cannula 3.00 06/27/16 23:39 97 Nasal Cannula 3.00 06/27/16 23:39 98.0 59 15 134/66 97 151/53 06/27/16 23:39 59 06/27/16 20:57 97 Nasal Cannula 3.00 06/27/16 19:42 97.9 69 18 141/73 97 146/51 06/27/16 19:42 99 Nasal Cannula 3.00 06/27/16 19:00 59 06/27/16 18:00 60 06/27/16 18:00 97 Nasal Cannula 3.00 06/27/16 18:00 97 Nasal Cannula 3.00 06/27/16 17:45 97.3 60 16 139/67 97 134/53 06/27/16 17:30 59 14 143/66 99 Nasal Cannula 3 06/27/16 17:15 59 12 154/54 99 Nasal Cannula 3 06/27/16 17:00 59 12 147/51 98 Nasal Cannula 3 06/27/16 16:45 79 12 156/54 99 Nasal Cannula 3 06/27/16 16:25 97.2 59 12 161/49 97 Nasal Cannula 3 06/27/16 16:15 60 15 181/66 99 Nasal Cannula 3 06/27/16 16:00 59 16 183/68 99 Nasal Cannula 3 06/27/16 15:45 62 16 187/84 99 Nasal Cannula 3 06/27/16 15:40 64 16 191/73 98 Nasal Cannula 3 06/27/16 15:35 60 17 190/69 98 Nasal Cannula 3 06/27/16 15:30 97.8 60 14 194/59 98 Nasal Cannula 3 Labs: Laboratory Tests Test 06/28/16 04:45 White Blood Count 6.1 TH/MM3 (4.0-11.0) Red Blood Count 3.89 MIL/MM3 (4.50-5.90) Hemoglobin 12.6 GM/DL (13.0-17.0) Hematocrit 36.6 % (39.0-51.0) Mean Corpuscular Volume 94.0 FL (80.0-100.0) Mean Corpuscular Hemoglobin 32.4 PG (27.0-34.0) Mean Corpuscular Hemoglobin 34.5 % Concent (32.0-36.0) Red Cell Distribution Width 13.7 % (11.6-17.2) Platelet Count 100 TH/MM3 (150-450) Mean Platelet Volume 9.7 FL (7.0-11.0) Neutrophils (%) (Auto) 71.2 % (16.0-70.0) Lymphocytes (%) (Auto) 15.2 % (9.0-44.0) Monocytes (%) (Auto) 10.4 % (0.0-8.0) Eosinophils (%) (Auto) 2.9 % (0.0-4.0) Basophils (%) (Auto) 0.3 % (0.0-2.0) Neutrophils # (Auto) 4.3 TH/MM3 (1.8-7.7) Lymphocytes # (Auto) 0.9 TH/MM3 (1.0-4.8) Monocytes # (Auto) 0.6 TH/MM3 (0-0.9) Eosinophils # (Auto) 0.2 TH/MM3 (0-0.4) Basophils # (Auto) 0.0 TH/MM3 (0-0.2) CBC Comment DIFF FINAL Differential Comment Result Diagram: 06/28/16 0445 (1) Near syncope (2) A-fib (3) CAD (coronary artery disease) (4) HTN (hypertension) (5) Hyperlipidemia (6) Bradycardia with 31-40 beats per minute (7) PVD (peripheral vascular disease) Brielle Parker MD Jun 28, 2016 14:26
--- NOTE | 2016-06-28 14:46 | PD.CARD.PN ---
Subjective Subjective Remarks The patient had right CEA yesterday. Today BP is elevated. Currently on cardene drip and had clonidine patch. Unresponsive to vasotec. Home meds include lisinopril, norvasc and hytrin. Hytrin was held. RN does not know why. Patient denies CP or SOB. (Franny Larsen) Objective Medications Current Medications Medications (Trade) Dose Ordered Sig/Magdaleno Route Start Time Stop Time Status Last Admin (NS Flush) 2 ml UNSCH PRN FLUSH 06/20/16 17:00 (NS Flush) 2 ml BID FLUSH 06/20/16 21:00 06/28/16 09:13 (Tylenol) 650 mg Q4H PRN PO 06/20/16 17:00 06/26/16 03:31 (Narcan Inj) 0.4 mg UNSCH PRN IV 06/20/16 17:00 (Lipitor) 20 mg HS PO 06/20/16 21:00 06/27/16 20:28 (Ecotrin Ec) 81 mg DAILY PO 06/21/16 09:00 06/28/16 09:00 (Vasotec Inj) 1.25 mg Q8H PRN IV PUSH 06/20/16 20:45 06/28/16 07:44 (Hytrin) 5 mg HS PO 06/22/16 21:00 06/26/16 20:20 (Norvasc) 10 mg DAILY PO 06/23/16 09:00 06/28/16 09:13 (Colace) 100 mg BID PO 06/23/16 21:00 06/28/16 09:13 (Proscar) 5 mg DAILY PO 06/26/16 09:00 06/28/16 09:13 (Prinivil) 20 mg BID PO 06/27/16 21:00 06/28/16 09:15 Miscellaneous Information ALL NURSING DEPARTME... UNSCH PRN XX 06/27/16 15:20 06/28/16 15:19 Sodium Chloride 1,000 ml @ 100 mls/hr Q10H IV 06/27/16 17:00 06/28/16 12:59 (Cardene Inj/NS 250 ml Inj) 260 ml @ 0 mls/hr TITRATE IV 06/27/16 16:15 06/28/16 09:13 (Eliquis) 5 mg BID PO 06/27/16 21:00 06/28/16 09:13 (Morphine Inj) 4 mg Q2H PRN IV PUSH 06/27/16 20:00 06/28/16 05:23 (Percocet 5-325 Mg) 1 tab Q4H PRN PO 06/27/16 20:00 06/28/16 07:29 (Zofran Inj) 4 mg Q6HR PRN IV PUSH 06/27/16 20:00 (Catapres-Tts 0.2 Mg Patch.7d) 1 patch Q7D TD 06/28/16 12:00 06/28/16 12:03 Miscellaneous Information 1 Q7D T-DERMAL 07/05/16 12:00 Vital Signs / I&O Vital Signs Date Time Temp Pulse Resp B/P Pulse Ox O2 Delivery O2 Flow Rate FiO2 06/28/16 11:08 97.9 58 16 136/73 97 157/49 06/28/16 11:07 58 06/28/16 11:07 95 Nasal Cannula 3.00 06/28/16 07:49 96 Nasal Cannula 2.00 06/28/16 07:39 98.5 60 16 143/72 97 158/55 06/28/16 07:33 97 Nasal Cannula 3.00 06/28/16 07:33 61 06/28/16 03:23 98.2 60 17 138/69 97 151/54 06/28/16 03:23 97 Nasal Cannula 3.00 06/28/16 03:23 59 06/27/16 23:39 97 Nasal Cannula 3.00 06/27/16 23:39 97 Nasal Cannula 3.00 06/27/16 23:39 98.0 59 15 134/66 97 151/53 06/27/16 23:39 59 06/27/16 20:57 97 Nasal Cannula 3.00 06/27/16 19:42 97.9 69 18 141/73 97 146/51 06/27/16 19:42 99 Nasal Cannula 3.00 06/27/16 19:00 59 06/27/16 18:00 60 06/27/16 18:00 97 Nasal Cannula 3.00 06/27/16 18:00 97 Nasal Cannula 3.00 06/27/16 17:45 97.3 60 16 139/67 97 134/53 06/27/16 17:30 59 14 143/66 99 Nasal Cannula 3 06/27/16 17:15 59 12 154/54 99 Nasal Cannula 3 06/27/16 17:00 59 12 147/51 98 Nasal Cannula 3 06/27/16 16:45 79 12 156/54 99 Nasal Cannula 3 06/27/16 16:25 97.2 59 12 161/49 97 Nasal Cannula 3 06/27/16 16:15 60 15 181/66 99 Nasal Cannula 3 06/27/16 16:00 59 16 183/68 99 Nasal Cannula 3 06/27/16 15:45 62 16 187/84 99 Nasal Cannula 3 06/27/16 15:40 64 16 191/73 98 Nasal Cannula 3 06/27/16 15:35 60 17 190/69 98 Nasal Cannula 3 06/27/16 15:30 97.8 60 14 194/59 98 Nasal Cannula 3 I/O 06/27/16 06/27/16 06/27/16 06/28/16 06/28/16 06/28/16 07:00 15:00 23:00 07:00 15:00 23:00 Intake Total 480 ml 1272 ml 2449 ml Output Total 1800 ml 250 ml 825 ml Balance -1320 ml 1022 ml 1624 ml Intake Oral 480 ml 720 ml IV Total 272 ml 1729 ml Other 1000 ml Output Urine Total 1800 ml 100 ml 800 ml Drainage Total 25 ml Estimated Blood Loss 150 ml # Bowel Movements 0 Physical Exam GENERAL: Elderly, fit male sitting up in the chair SKIN: Warm and dry. HEAD: Normocephalic. EYES: No scleral icterus. No injection or drainage. NECK: Supple, trachea midline. Right CEA sutures CARDIOVASCULAR: Regular rate and rhythm without murmurs, gallops, or rubs. PPM incision site with steri strips RESPIRATORY: Breath sounds equal bilaterally. No accessory muscle use. GASTROINTESTINAL: Abdomen soft, non-tender, nondistended. MUSCULOSKELETAL: No cyanosis, or edema. BACK: Nontender without obvious deformity. Laboratory Laboratory Tests Test 06/28/16 04:45 White Blood Count 6.1 TH/MM3 Red Blood Count 3.89 MIL/MM3 Hemoglobin 12.6 GM/DL Hematocrit 36.6 % Mean Corpuscular Volume 94.0 FL Mean Corpuscular Hemoglobin 32.4 PG Mean Corpuscular Hemoglobin 34.5 % Concent Red Cell Distribution Width 13.7 % Platelet Count 100 TH/MM3 Mean Platelet Volume 9.7 FL Neutrophils (%) (Auto) 71.2 % Lymphocytes (%) (Auto) 15.2 % Monocytes (%) (Auto) 10.4 % Eosinophils (%) (Auto) 2.9 % Basophils (%) (Auto) 0.3 % Neutrophils # (Auto) 4.3 TH/MM3 Lymphocytes # (Auto) 0.9 TH/MM3 Monocytes # (Auto) 0.6 TH/MM3 Eosinophils # (Auto) 0.2 TH/MM3 Basophils # (Auto) 0.0 TH/MM3 CBC Comment DIFF FINAL Differential Comment (Franny Larsen) Assessment and Plan Problem List: (1) Near syncope (2) A-fib (3) CAD (coronary artery disease) (4) HTN (hypertension) (5) Hyperlipidemia (6) Bradycardia with 31-40 beats per minute (7) PVD (peripheral vascular disease) Assessment and Plan Blood pressure has been elevated since CEA. Suspect irritation of carotid body. Will adjust oral therapy and wean the patient from Cardene drip. Recommend observation of patient after Cardene drip is weaned for 12-24 hrs as blood pressure can fluctuate. Patient seen and evaluated by Dr. Green. (Franny Larsen) Assessment and Plan The exam, history, and the medical decision-making described in the above note were completed with the assistance of the mid-level provider. I reviewed and agree with the findings presented. I attest that I had a [id number] encounter with the patient on the same day, and personally performed and documented my assessment and findings in the medical record. (Jessee Green MD) Franny Larsen Jun 28, 2016 14:46 Jessee Green MD Jun 29, 2016 15:13
[2016-06-28] MEDS: LABETALOL HCL 200 MG TAB PO SCH ×2 (15:06→17:44)
--- NOTE | 2016-06-28 16:13 | HHI.PR ---
Subjective Remarks Patient seen and examined Resting in bed comfortably Denied any headache or lightheadedness or blurry vision Had CEA yesterday Pressure has been up since the surgery, possibly irritation on the carotid corpus Objective Vitals Vital Signs Date Time Temp Pulse Resp B/P Pulse Ox O2 Delivery O2 Flow Rate FiO2 06/28/16 15:10 59 06/28/16 15:10 93 Room Air 06/28/16 15:07 97.4 59 20 153/73 93 Arterial Line 06/28/16 11:08 97.9 58 16 136/73 97 157/49 06/28/16 11:07 58 06/28/16 11:07 95 Nasal Cannula 3.00 06/28/16 07:49 96 Nasal Cannula 2.00 06/28/16 07:39 98.5 60 16 143/72 97 158/55 06/28/16 07:33 97 Nasal Cannula 3.00 06/28/16 07:33 61 06/28/16 03:23 98.2 60 17 138/69 97 151/54 06/28/16 03:23 97 Nasal Cannula 3.00 06/28/16 03:23 59 06/27/16 23:39 97 Nasal Cannula 3.00 06/27/16 23:39 97 Nasal Cannula 3.00 06/27/16 23:39 98.0 59 15 134/66 97 151/53 06/27/16 23:39 59 06/27/16 20:57 97 Nasal Cannula 3.00 06/27/16 19:42 97.9 69 18 141/73 97 146/51 06/27/16 19:42 99 Nasal Cannula 3.00 06/27/16 19:00 59 06/27/16 18:00 60 06/27/16 18:00 97 Nasal Cannula 3.00 06/27/16 18:00 97 Nasal Cannula 3.00 06/27/16 17:45 97.3 60 16 139/67 97 134/53 06/27/16 17:30 59 14 143/66 99 Nasal Cannula 3 06/27/16 17:15 59 12 154/54 99 Nasal Cannula 3 06/27/16 17:00 59 12 147/51 98 Nasal Cannula 3 06/27/16 16:45 79 12 156/54 99 Nasal Cannula 3 06/27/16 16:25 97.2 59 12 161/49 97 Nasal Cannula 3 06/27/16 16:15 60 15 181/66 99 Nasal Cannula 3 I/O 06/27/16 06/27/16 06/27/16 06/28/16 06/28/16 06/28/16 07:00 15:00 23:00 07:00 15:00 23:00 Intake Total 480 ml 1272 ml 2449 ml Output Total 1800 ml 250 ml 825 ml Balance -1320 ml 1022 ml 1624 ml Intake Oral 480 ml 720 ml IV Total 272 ml 1729 ml Other 1000 ml Output Urine Total 1800 ml 100 ml 800 ml Drainage Total 25 ml Estimated Blood Loss 150 ml # Bowel Movements 0 Result Diagram: 06/28/16 0445 Objective Remarks GENERAL: This is a well-nourished, well-developed patient, in no apparent distress. SKIN: No rashes, warm and dry HEAD: Atraumatic. Normocephalic. EYES: Pupils equal round and reactive. Extraocular motions intact. No scleral icterus. ENT: Nose without bleeding, or drainage, Airway patent. NECK: Trachea midline. Supple, right CEA incision looks clean CARDIOVASCULAR: Regular rate and rhythm without murmurs, gallops, or rubs. RESPIRATORY: Fair air entry bilaterally. No wheezes, rales, or rhonchi. GASTROINTESTINAL: Abdomen soft, non-tender, nondistended. Positive bowel sounds MUSCULOSKELETAL: Extremities without clubbing, cyanosis, or edema. Pedal pulses appreciated NEUROLOGICAL: Awake and alert. Moves all extremity. Normal speech.no focal neurological deficit Procedures 3/3- PM placement CEA 06/27 Date of Insertion: Jun 25, 2016 A/P Problem List: (1) Near syncope ICD Code: R55 Status: Acute (2) A-fib ICD Code: I48.91 Status: Chronic (3) CAD (coronary artery disease) ICD Code: I25.10 Status: Chronic (4) Hyperlipidemia ICD Code: E78.5 Status: Chronic (5) HTN (hypertension) ICD Code: I10 Status: Chronic Assessment and Plan 06/27/16: Increase lisinopril, plan for CEA on the right today 06/28/16: Hypertension not improving, not responsive to Vasotec, Cardene drip weaned down and placed on Catapres patch by [facility], appreciate cardiology consultation recommending continuing observation after stopping Cardene drip due to fluctuating blood pressure, monitor heart rate while on Catapres patch A/P: 80 years old admitted for near syncope Atrial fibrillation in slow ventricular rate S/P PM 06/25. Eliquis on hold Right carotid stenosis plan for CEA- Vascular surgery for CEA-06/27/16 Hypertension uncontrolled Amlodipine 10 mg daily Increase Lisinopril 20 mg bid prn IV Vasotec with BP change parameter to 160/90 no BB, clonidine- due to bradycardia Acute urinary retention- straight cath 06/24- 700cc obtained, urology following History of BPH- incomplete bladder emptying sensation On Terazosin as OP- continued here insert alfredo today 06/25- keep for surgery d/w Dr. Stone - started on Proscar Constipation- can contribute to urinary retention continue Colace Mg citrate x 1 patient up and ambulating Jadiel Clements MD Jun 28, 2016 16:13
[2016-06-28] MEDS: TERAZOSIN HCL 5 MG CAP PO SCH (20:03)
[2016-06-28] MEDS: ATORVASTATIN 20 MG TAB PO SCH (20:03)
[2016-06-29] VITALS (9 sets, daily range): BP systolic 101–169; BP diastolic 64–92; PULSE 56–87; RESP 15–18; TEMP 97.8–98.3; O2SAT 92–98
[2016-06-29] MEDS: MORPHINE SULFATE 4 MG/ML INJ IV PUSH PRN ×2 (02:04→04:19)
[2016-06-29] MEDS: oxyCODONE/ACETAMINOPHEN 5 MG/325 MG TAB PO PRN ×4 (02:05→22:54)
[2016-06-29] MEDS: SODIUM CHLOR 0.9% 1000 ML INJ 1,000 ML IV SCH ×2 (02:47→18:17)
[2016-06-29] MEDS: DOCUSATE SODIUM 100 MG CAP PO SCH ×2 (07:35→21:18)
[2016-06-29] MEDS: FINASTERIDE 5 MG TAB PO SCH (07:35)
[2016-06-29] MEDS: LISINOPRIL 20 MG TAB PO SCH ×2 (08:00→21:18)
[2016-06-29] MEDS: ASPIRIN EC 81 MG TABEC PO SCH (08:01)
[2016-06-29] MEDS: APIXABAN 5 MG TABLET PO SCH ×2 (08:01→21:16)
[2016-06-29] MEDS: SODIUM CHLORIDE 0.9% FLUSH 5 ML FLUSH FLUSH SCH ×2 (08:03→21:19)
[2016-06-29] MEDS: LABETALOL HCL 200 MG TAB PO SCH ×3 (09:00→18:10)
--- NOTE | 2016-06-29 12:34 | HHI.FF ---
Face to Face Verification Diagnosis: (1) Urinary retention (2) PVD (peripheral vascular disease) Home Health Nursing Order: Medical education Nursing assessment with vital signs Acosta catheter maintenance I have seen patient George Velasquez on 06/29/16. My clinical findings support the need for the requested home health care services because: Ltd mobility - disease progression I certify that my clinical findings support that this patient is homebound because: Post-op weakness Jadiel Clements MD Jun 29, 2016 12:34
--- NOTE | 2016-06-29 12:38 | HHI.PR ---
Subjective Remarks pt had 800 cc urin retention on BS today felt very uncomfortable urology consulted after foly cath inserted Objective Vitals Vital Signs Date Time Temp Pulse Resp B/P Pulse Ox O2 Delivery O2 Flow Rate FiO2 06/29/16 11:15 92 Room Air 06/29/16 11:15 97.9 59 16 161/80 92 06/29/16 11:00 60 06/29/16 07:30 98 Room Air 06/29/16 07:30 97.9 59 16 164/92 98 06/29/16 07:00 60 06/29/16 03:34 96 Room Air 06/29/16 03:31 98.0 62 15 133/79 95 06/29/16 03:31 60 06/28/16 23:15 60 06/28/16 23:15 97 Room Air 06/28/16 23:15 98.2 63 18 151/76 97 06/28/16 19:30 95 Room Air 06/28/16 19:30 98.5 60 17 155/80 95 06/28/16 19:00 59 06/28/16 15:10 59 06/28/16 15:10 93 Room Air 06/28/16 15:07 97.4 59 20 153/73 93 Arterial Line I/O 06/28/16 06/28/16 06/28/16 06/29/16 06/29/16 06/29/16 07:00 15:00 23:00 07:00 15:00 23:00 Intake Total 2449 ml 2179 ml 1609 ml Output Total 825 ml 700 ml 950 ml Balance 1624 ml 1479 ml 659 ml Intake Oral 720 ml 650 ml 480 ml IV Total 1729 ml 1529 ml 1129 ml Output Urine Total 800 ml 700 ml 950 ml Drainage Total 25 ml Bladder Scan Volume Amount 569 ml 569 ml # Bowel Movements 0 0 0 Result Diagram: 06/28/16 0445 Objective Remarks GENERAL: This is a well-nourished, well-developed patient, in no apparent distress. SKIN: No rashes, warm and dry HEAD: Atraumatic. Normocephalic. EYES: Pupils equal round and reactive. Extraocular motions intact. No scleral icterus. ENT: Nose without bleeding, or drainage, Airway patent. NECK: Trachea midline. Supple, right CEA incision looks clean CARDIOVASCULAR: Regular rate and rhythm without murmurs, gallops, or rubs. RESPIRATORY: Fair air entry bilaterally. No wheezes, rales, or rhonchi. GASTROINTESTINAL: Abdomen soft, non-tender, nondistended. Positive bowel sounds MUSCULOSKELETAL: Extremities without clubbing, cyanosis, or edema. Pedal pulses appreciated NEUROLOGICAL: Awake and alert. Moves all extremity. Normal speech.no focal neurological deficit Procedures 06/24- PM placement CEA 06/27 Date of Insertion: Jun 25, 2016 A/P Problem List: (1) Near syncope ICD Code: R55 Status: Acute (2) A-fib ICD Code: I48.91 Status: Chronic (3) CAD (coronary artery disease) ICD Code: I25.10 Status: Chronic (4) Hyperlipidemia ICD Code: E78.5 Status: Chronic (5) HTN (hypertension) ICD Code: I10 Status: Chronic Assessment and Plan 06/27/16: Increase lisinopril, plan for CEA on the right today 06/28/16: Hypertension not improving, not responsive to Vasotec, Cardene drip weaned down and placed on Catapres patch by [facility], appreciate cardiology consultation recommending continuing observation after stopping Cardene drip due to fluctuating blood pressure, monitor heart rate while on Catapres patch 06/29/16: urin retention 800 cc BS, foly in , urology rec dc with it , [facility] F-F inserted , cardiology wants to see pt today to further aDJUST bp MEDS , HE IS AT 160/81 now i d/w nurse , dc order placed A/P: 80 years old admitted for near syncope Atrial fibrillation in slow ventricular rate S/P PM 06/25. Eliquis on hold Right carotid stenosis plan for CEA- Vascular surgery for CEA-06/27/16 Hypertension uncontrolled Amlodipine 10 mg daily Increase Lisinopril 20 mg bid prn IV Vasotec with BP change parameter to 160/90 no BB, clonidine- due to bradycardia Acute urinary retention- straight cath 06/24- 700cc obtained, urology following History of BPH- incomplete bladder emptying sensation On Terazosin as OP- continued here insert alfredo today 06/25- keep for surgery d/w Dr. Stone - started on Proscar Constipation- can contribute to urinary retention continue Colace Mg citrate x 1 patient up and ambulating Jadiel Clements MD Jun 29, 2016 12:38
[2016-06-29] MEDS ORDERED: LABE200T2 PO (12:40)
[2016-06-29] MEDS ORDERED: LISI-515 PO (12:40)
--- NOTE | 2016-06-29 14:16 | PD.CARD.PN ---
Subjective Subjective Remarks No CP or SOB at rest. Off cardene drip. SBP 150-165 mmHg on multiple therapies. New urinary retention. Objective Medications Current Medications Medications (Trade) Dose Ordered Sig/Magdaleno Route Start Time Stop Time Status Last Admin (NS Flush) 2 ml UNSCH PRN FLUSH 06/20/16 17:00 (NS Flush) 2 ml BID FLUSH 06/20/16 21:00 06/28/16 20:04 (Tylenol) 650 mg Q4H PRN PO 06/20/16 17:00 06/26/16 03:31 (Narcan Inj) 0.4 mg UNSCH PRN IV 06/20/16 17:00 (Lipitor) 20 mg HS PO 06/20/16 21:00 06/28/16 20:03 (Ecotrin Ec) 81 mg DAILY PO 06/21/16 09:00 06/29/16 08:01 (Vasotec Inj) 1.25 mg Q8H PRN IV PUSH 06/20/16 20:45 06/28/16 07:44 (Hytrin) 5 mg HS PO 06/22/16 21:00 06/28/16 20:03 (Norvasc) 10 mg DAILY PO 06/23/16 09:00 06/29/16 08:00 (Colace) 100 mg BID PO 06/23/16 21:00 06/29/16 07:35 Finasteride 5 mg 5 mg DAILY PO 06/26/16 09:00 06/29/16 07:35 Sodium Chloride 1,000 ml @ 100 mls/hr Q10H IV 06/27/16 17:00 06/29/16 02:47 (Cardene Inj/NS 250 ml Inj) 260 ml @ 0 mls/hr TITRATE IV 06/27/16 16:15 06/28/16 14:58 (Eliquis) 5 mg BID PO 06/27/16 21:00 06/29/16 08:01 (Morphine Inj) 4 mg Q2H PRN IV PUSH 06/27/16 20:00 06/29/16 04:19 (Percocet 5-325 Mg) 1 tab Q4H PRN PO 06/27/16 20:00 06/29/16 07:34 (Zofran Inj) 4 mg Q6HR PRN IV PUSH 06/27/16 20:00 (Catapres-Tts 0.2 Mg Patch.7d) 1 patch Q7D TD 06/28/16 12:00 06/28/16 12:03 Miscellaneous Information 1 Q7D T-DERMAL 07/05/16 12:00 (Prinivil) 40 mg BID PO 06/28/16 21:00 06/29/16 08:00 (Trandate) 200 mg TID PO 06/28/16 15:00 06/29/16 12:57 Vital Signs / I&O Vital Signs Date Time Temp Pulse Resp B/P Pulse Ox O2 Delivery O2 Flow Rate FiO2 06/29/16 11:15 92 Room Air 06/29/16 11:15 97.9 59 16 161/80 92 06/29/16 11:00 60 06/29/16 07:30 98 Room Air 06/29/16 07:30 97.9 59 16 164/92 98 06/29/16 07:00 60 06/29/16 03:34 96 Room Air 06/29/16 03:31 98.0 62 15 133/79 95 06/29/16 03:31 60 06/28/16 23:15 60 06/28/16 23:15 97 Room Air 06/28/16 23:15 98.2 63 18 151/76 97 06/28/16 19:30 95 Room Air 06/28/16 19:30 98.5 60 17 155/80 95 06/28/16 19:00 59 06/28/16 15:10 59 06/28/16 15:10 93 Room Air 06/28/16 15:07 97.4 59 20 153/73 93 Arterial Line I/O 06/28/16 06/28/16 06/28/16 06/29/16 06/29/16 06/29/16 06:59 14:59 22:59 06:59 14:59 22:59 Intake Total 2449 ml 2179 ml 1609 ml Output Total 825 ml 700 ml 950 ml Balance 1624 ml 1479 ml 659 ml Intake Oral 720 ml 650 ml 480 ml IV Total 1729 ml 1529 ml 1129 ml Output Urine Total 800 ml 700 ml 950 ml Drainage Total 25 ml Bladder Scan Volume Amount 569 ml 569 ml # Bowel Movements 0 0 0 Physical Exam GENERAL: Elderly, fit male sitting up in the chair SKIN: Warm and dry. HEAD: Normocephalic. EYES: No scleral icterus. No injection or drainage. NECK: Supple, trachea midline. Right CEA incision site CARDIOVASCULAR: Regular rate and rhythm without murmurs, gallops, or rubs. PPM incision site with steri strips RESPIRATORY: Breath sounds equal bilaterally. No accessory muscle use. GASTROINTESTINAL: Abdomen soft, non-tender, nondistended. MUSCULOSKELETAL: No cyanosis, or edema. BACK: Nontender without obvious deformity. Assessment and Plan Problem List: (1) Near syncope (2) A-fib (3) CAD (coronary artery disease) (4) HTN (hypertension) (5) Hyperlipidemia (6) Bradycardia with 31-40 beats per minute (7) PVD (peripheral vascular disease) Assessment and Plan Increase labatelol. DC clonidine is SBP < 140 mmHg. DC home tomorrow if BP remains stable. Assessment and plan discussed with Franny Myles Jun 29, 2016 14:16
[2016-06-29] MEDS ORDERED: PILL SPLITTER OTHER PRN (14:30)
[2016-06-29] MEDS: ENALAPRILAT 1.25 MG/ML VIAL IV PUSH PRN (15:20)
--- NOTE | 2016-06-29 17:03 | PD.CAR.PN ---
CVT Progress Note Subjective/Hospital Course: This gentleman had a syncopal episode and it is very hard to tell where it is coming from. Most likely it is heart related. Perhaps the patient developed more profound bradycardia. On the other hand, it seems to be a lateralizing event so, hence, the slight confusion. On the other hand, the patient has a clear finding of about 70% right internal carotid artery stenosis. I reviewed the study myself and I think it might be actually a little higher degree of narrowing. Question now arises if this is an asymptomatic stenosis or not. At this point, I believe it is irrelevant. The patient is in a very good physical shape. Cardiac workup takes precedence and I would allow Dr. Ng to do whatever needs to be done for the heart. In this particular situation, this patient might benefit from pacemaker placement but I would leave that up to cardiology. Once the heart is handled, I believe in face of 70% carotid artery stenosis and even questionable symptoms, the patient all things equal should be offered right carotid endarterectomy. Therefore, my plan is to allow cardiology to finish the workup on the patient, any diagnostic or therapeutic procedure that might be needed and then I intend to proceed with carotid endarterectomy. 06/22/16 Had a long discussion with the patient and today discussed the case with Dr. ng Patient was on Eliquis for his A. fib so he will undergo pacemaker placement on Monday. I will follow with a carotid right endarterectomy thereafter probably on Monday or Monday without restarting anticoagulants in the meantime This is the safest approach to this situation In addition I reviewed the MRI and the the degree of stenosis is probably somewhat larger than 70% 06/23/2016 Discussed the case with the patient and Dr. Ng Patient will undergo placement of a pacemaker on Monday and I will follow with the right carotid endarterectomy on Monday On the other hand if patient wants to go home on anticoagulants I can always bring him back in the future for carotid endarterectomy I will give patient some time to recover 06/28/16 Patient status post right carotid endarterectomy Incision is clean and dry BRANDY has been removed TEX Acosta Patient is neurologically fully intact The only reason patient still in ICU is the control of the hypertension for which patient still receives Cardene drip Additional Catapres patch will probably fix this and patient will be able to go to the floor and then be discharged Doing very well at this time Patient awake alert and oriented Incision is clean and dry Neurologically is fully intact Patient apparently had urinary retention had a Acosta catheter placed From my point patient can be discharged any time May shower get incision wet Follow-up with my office in about 2-3 weeks Objective: Vital Signs Date Time Temp Pulse Resp B/P Pulse Ox O2 Delivery O2 Flow Rate FiO2 06/29/16 15:21 98.3 56 16 169/88 94 06/29/16 15:21 94 Room Air 06/29/16 15:00 60 06/29/16 11:15 92 Room Air 06/29/16 11:15 97.9 59 16 161/80 92 06/29/16 11:00 60 06/29/16 07:30 98 Room Air 06/29/16 07:30 97.9 59 16 164/92 98 06/29/16 07:00 60 06/29/16 03:34 96 Room Air 06/29/16 03:31 98.0 62 15 133/79 95 06/29/16 03:31 60 06/28/16 23:15 60 06/28/16 23:15 97 Room Air 06/28/16 23:15 98.2 63 18 151/76 97 06/28/16 19:30 95 Room Air 06/28/16 19:30 98.5 60 17 155/80 95 06/28/16 19:00 59 Result Diagram: 06/28/16 0445 (1) Near syncope (2) A-fib (3) CAD (coronary artery disease) (4) HTN (hypertension) (5) Hyperlipidemia (6) Bradycardia with 31-40 beats per minute (7) PVD (peripheral vascular disease) Brielle Parker MD Jun 29, 2016 17:03
[2016-06-29] MEDS: TERAZOSIN HCL 5 MG CAP PO SCH (21:18)
[2016-06-29] MEDS: ATORVASTATIN 20 MG TAB PO SCH (21:18)
[2016-06-30 03:00] VITALS: BP 146/76; PULSE 59; RESP 20; TEMP 98.2; O2SAT 94
[2016-06-30 07:00] VITALS: BP 171/85; PULSE 59; RESP 18; TEMP 98.4; O2SAT 94
[2016-06-30] MEDS: ASPIRIN EC 81 MG TABEC PO SCH (08:46)
[2016-06-30] MEDS: APIXABAN 5 MG TABLET PO SCH (08:46)
[2016-06-30] MEDS: LISINOPRIL 20 MG TAB PO SCH (08:46)
[2016-06-30] MEDS: FINASTERIDE 5 MG TAB PO SCH (08:46)
[2016-06-30] MEDS: DOCUSATE SODIUM 100 MG CAP PO SCH (08:47)
[2016-06-30] MEDS: LABETALOL HCL 200 MG TAB PO SCH (08:47)
[2016-06-30] MEDS: SODIUM CHLORIDE 0.9% FLUSH 5 ML FLUSH FLUSH SCH (08:47)
--- NOTE | 2016-06-30 08:59 | PD.CAR.PN ---
CVT Progress Note Subjective/Hospital Course: This gentleman had a syncopal episode and it is very hard to tell where it is coming from. Most likely it is heart related. Perhaps the patient developed more profound bradycardia. On the other hand, it seems to be a lateralizing event so, hence, the slight confusion. On the other hand, the patient has a clear finding of about 70% right internal carotid artery stenosis. I reviewed the study myself and I think it might be actually a little higher degree of narrowing. Question now arises if this is an asymptomatic stenosis or not. At this point, I believe it is irrelevant. The patient is in a very good physical shape. Cardiac workup takes precedence and I would allow Dr. Ng to do whatever needs to be done for the heart. In this particular situation, this patient might benefit from pacemaker placement but I would leave that up to cardiology. Once the heart is handled, I believe in face of 70% carotid artery stenosis and even questionable symptoms, the patient all things equal should be offered right carotid endarterectomy. Therefore, my plan is to allow cardiology to finish the workup on the patient, any diagnostic or therapeutic procedure that might be needed and then I intend to proceed with carotid endarterectomy. 06/22/16 Had a long discussion with the patient and today discussed the case with Dr. ng Patient was on Eliquis for his A. fib so he will undergo pacemaker placement on Monday. I will follow with a carotid right endarterectomy thereafter probably on Monday or Monday without restarting anticoagulants in the meantime This is the safest approach to this situation In addition I reviewed the MRI and the the degree of stenosis is probably somewhat larger than 70% 06/23/2016 Discussed the case with the patient and Dr. Ng Patient will undergo placement of a pacemaker on Monday and I will follow with the right carotid endarterectomy on Monday On the other hand if patient wants to go home on anticoagulants I can always bring him back in the future for carotid endarterectomy I will give patient some time to recover 06/28/16 Patient status post right carotid endarterectomy Incision is clean and dry BRANDY has been removed TEX Acosta Patient is neurologically fully intact The only reason patient still in ICU is the control of the hypertension for which patient still receives Cardene drip Additional Catapres patch will probably fix this and patient will be able to go to the floor and then be discharged Doing very well at this time Patient awake alert and oriented Incision is clean and dry Neurologically is fully intact Patient apparently had urinary retention had a Acosta catheter placed From my point patient can be discharged any time May shower get incision wet Follow-up with my office in about 2-3 weeks 06/30/16 Neurologically fully intact status post right carotid endarterectomy Incision clean and dry May shower Urinary retention as per urology Grateful for internal medicine help with management of blood pressure From my point patient can be discharged any time Objective: Vital Signs Date Time Temp Pulse Resp B/P Pulse Ox O2 Delivery O2 Flow Rate FiO2 06/30/16 03:00 59 06/30/16 03:00 94 Room Air 06/30/16 03:00 98.2 59 20 146/76 94 06/29/16 23:00 95 Room Air 06/29/16 23:00 97.8 62 18 137/68 95 06/29/16 23:00 59 06/29/16 19:00 96 Room Air 06/29/16 19:00 59 06/29/16 19:00 98.2 59 18 157/68 96 06/29/16 15:21 98.3 56 16 169/88 94 06/29/16 15:21 94 Room Air 06/29/16 15:00 60 06/29/16 11:15 92 Room Air 06/29/16 11:15 97.9 59 16 161/80 92 06/29/16 11:00 60 Result Diagram: 06/28/16 0445 (1) Near syncope (2) A-fib (3) CAD (coronary artery disease) (4) HTN (hypertension) (5) Hyperlipidemia (6) Bradycardia with 31-40 beats per minute (7) PVD (peripheral vascular disease) Brielle Parker MD Jun 30, 2016 08:59
--- NOTE | 2016-06-30 09:34 | HHI.PR ---
Subjective Remarks doing well , bp better , [facility] , cardio will dc home Objective Vitals Vital Signs Date Time Temp Pulse Resp B/P Pulse Ox O2 Delivery O2 Flow Rate FiO2 06/30/16 07:00 59 06/30/16 03:00 59 06/30/16 03:00 94 Room Air 06/30/16 03:00 98.2 59 20 146/76 94 06/29/16 23:00 95 Room Air 06/29/16 23:00 97.8 62 18 137/68 95 06/29/16 23:00 59 06/29/16 19:00 96 Room Air 06/29/16 19:00 59 06/29/16 19:00 98.2 59 18 157/68 96 06/29/16 15:21 98.3 56 16 169/88 94 06/29/16 15:21 94 Room Air 06/29/16 15:00 60 06/29/16 11:15 92 Room Air 06/29/16 11:15 97.9 59 16 161/80 92 06/29/16 11:00 60 I/O 06/29/16 06/29/16 06/29/16 06/30/16 06/30/16 06/30/16 07:00 15:00 23:00 07:00 15:00 23:00 Intake Total 1609 ml 2120 ml 420 ml Output Total 950 ml 2475 ml 2020 ml Balance 659 ml -355 ml -1600 ml Intake Oral 480 ml 1920 ml 420 ml IV Total 1129 ml 200 ml 0 ml Output Urine Total 950 ml 2475 ml 2020 ml Bladder Scan Volume Amount 569 ml 569 ml # Bowel Movements 0 0 Result Diagram: 06/28/16 0445 Objective Remarks GENERAL: This is a well-nourished, well-developed patient, in no apparent distress. SKIN: No rashes, warm and dry HEAD: Atraumatic. Normocephalic. EYES: Pupils equal round and reactive. Extraocular motions intact. No scleral icterus. ENT: Nose without bleeding, or drainage, Airway patent. NECK: Trachea midline. Supple, right CEA incision looks clean CARDIOVASCULAR: Regular rate and rhythm without murmurs, gallops, or rubs. RESPIRATORY: Fair air entry bilaterally. No wheezes, rales, or rhonchi. GASTROINTESTINAL: Abdomen soft, non-tender, nondistended. Positive bowel sounds MUSCULOSKELETAL: Extremities without clubbing, cyanosis, or edema. Pedal pulses appreciated NEUROLOGICAL: Awake and alert. Moves all extremity. Normal speech.no focal neurological deficit Procedures 06/24- PM placement CEA 06/27 Date of Insertion: Jun 25, 2016 A/P Problem List: (1) Near syncope ICD Code: R55 Status: Acute (2) A-fib ICD Code: I48.91 Status: Chronic (3) CAD (coronary artery disease) ICD Code: I25.10 Status: Chronic (4) Hyperlipidemia ICD Code: E78.5 Status: Chronic (5) HTN (hypertension) ICD Code: I10 Status: Chronic Assessment and Plan 06/27/16: Increase lisinopril, plan for CEA on the right today 06/28/16: Hypertension not improving, not responsive to Vasotec, Cardene drip weaned down and [facility], appreciate cardiology consultation recommending continuing observation after stopping Cardene drip due to fluctuating blood pressure, monitor heart rate while on Catapres patch 06/29/16: urin retention 800 cc BS, foly in , urology rec dc with it , [facility]-F inserted , cardiology wants to see pt today to further aDJUST bp MEDS , HE IS AT 160/81 now i d/w nurse , dc order placed 06/30: bp better , [facility] A/P: 80 years old admitted for near syncope Atrial fibrillation in slow ventricular rate S/P PM 06/25. Eliquis on hold Right carotid stenosis plan for CEA- Vascular surgery for CEA-06/27/16 Hypertension uncontrolled Amlodipine 10 mg daily Increase Lisinopril 20 mg bid prn IV Vasotec with BP change parameter to 160/90 no BB, clonidine- due to bradycardia Acute urinary retention- straight cath 06/24- 700cc obtained, urology following History of BPH- incomplete bladder emptying sensation On Terazosin as OP- continued here insert alfredo today 06/25- keep for surgery d/w Dr. Stone - started on Proscar Constipation- can contribute to urinary retention continue Colace Mg citrate x 1 patient up and ambulating Discharge Planning home today with Jadiel Ling MD Jun 30, 2016 09:34
[2016-07-05] MEDS ORDERED: REMOVE OLD PATCH T-DERMAL SCH (12:00)
[2016-07-06] MEDS ORDERED: OMEGCAP19 PO (09:21)
[2016-07-06] MEDS ORDERED: COEN400C PO (09:21)
[2016-07-06] MEDS ORDERED: GREE315C2 PO (09:21)
[2016-07-06] MEDS ORDERED: GARL1CAP PO (09:21)
[2016-07-06] MEDS ORDERED: VESI5TAB PO (10:09)
[2016-07-08] MEDS ORDERED: FINA5TAB2 PO (10:29)
[2016-07-12] MEDS ORDERED: BACT800T5 PO (15:34)
[2016-07-22] MEDS ORDERED: TAMS5CAP PO (13:08)
[2016-08-04] MEDS ORDERED: FINA5TAB2 PO (09:50)
== END 2016-06-30 11:47 | disposition home health service (06) | DRG 243 ==
LOC: NEPC 13:07 → NEDA 16:15 → N04A 21:29 → OBSVTOIN 06-21 10:51 → HCIS 06-24 12:04 → HCIN 06-24 13:50 → HCVR 06-27 17:45
PROVIDERS: ADMIT Hospitalist; ATTEND Hospitalist
PROC: 02HK3JZ Insertion of Pacemaker Lead into Right Ventricle, Percutaneous Approach (ICD-10-PCS; 2016-06-24)
PROC: 0JH604Z Insertion of Pacemaker, Single Chamber into Chest Subcutaneous Tissue and Fascia, Open Approach (ICD-10-PCS; principal; 2016-06-24 10:15)
PROC: 0T9B70Z Drainage of Bladder with Drainage Device, Via Natural or Artificial Opening (ICD-10-PCS; 2016-06-25)
PROC: 03CK0ZZ Extirpation of Matter from Right Internal Carotid Artery, Open Approach (ICD-10-PCS; 2016-06-27)
DX: I49.5 Sick sinus syndrome (principal); N17.9 Acute kidney failure, unspecified; I48.2 Chronic atrial fibrillation; I45.10 Unspecified right bundle-branch block; I65.21 Occlusion and stenosis of right carotid artery; I10 Essential (primary) hypertension; E78.00 Pure hypercholesterolemia, unspecified; Z95.1 Presence of aortocoronary bypass graft; E78.5 Hyperlipidemia, unspecified; I25.10 Atherosclerotic heart disease of native coronary artery without angina pectoris; H53.2 Diplopia; R33.8 Other retention of urine; N40.1 Benign prostatic hyperplasia with lower urinary tract symptoms; I16.0 Hypertensive urgency; F17.200 Nicotine dependence, unspecified, uncomplicated; K59.00 Constipation, unspecified
CPT/HCPCS: 33207; 70450; 70548; 70553; 71010; 80048; 80053; 80061; 81001; 82550; 82552; 83036; 83735; 84443; 84484; 85025; 85610; 85730; 86850; 86900; 86901; 88304; 88311; 93005; 93225; 93226; 93306; 93880; A9579; C1779; C1786; G0378; J0690; J1644; J1885; J2250; J2270; J2370; J2710; J2720; J3010; J3370; J7030; J7040; J7050; J7120

== ENCOUNTER 2016-07-03 14:30 | Emergency (ER) | payer MEDICARE ==
[~2016-07-03] VITALS: Ht 180.3 cm; Wt 80.0 kg
[~2016-07-03 14:30] MED LIST changes: +AMLO5TAB2 PO; +ASPI81CH CHEW; +ASPI81TA11 PO; -BACL10TA PO; +CENT50TA; +CLON.2T TD; +FINA5TAB2 PO; +GLUC1CAP14 PO; +LABE200T2 PO; -LIPI10TA PO; +LIPI20TA PO; +LISI-515 PO; +LISI20TA3 PO; -LORTA5 PO; -MOEX15TA2 PO; +OXYC1TAB63 PO; -PRED20 PO; +RESV1CAP2 PO; +TERA5CAP3 PO
[2016-07-03 14:33] VITALS: BP 137/76; PULSE 66; RESP 20; TEMP 97.6; O2SAT 97
[2016-07-03] MEDS ORDERED: OSTETAB PO (15:25)
[2016-07-03 15:29] LABS: BLOOD, URINE MOD (NEG); COMMENT (UR) CULT NOT INDICATED; CULTURE IF INDICATED CULT NOT INDICATED; GLUCOSE,URINE NEG (NEG); KETONE, URINE NEG (NEG); MUCUS URINE FEW /lpf (OCC); NITRITE,URINE NEG (NEG); PH, URINE 5.5 (5.0-8.5); URINE COLOR YELLOW (YELLW/STRAW)
[2016-07-03] MEDS ORDERED: MULT1TAB PO (15:29)
[2016-07-03] MEDS ORDERED: LISI-515 PO (15:29)
[2016-07-03] MEDS ORDERED: SUPER BETA PROSTATE PO (15:37)
[2016-07-03] MEDS ORDERED: LISI40TA PO (15:52)
[2016-07-03] MEDS ORDERED: SENN8.6T5 PO (15:53)
[2016-07-03] MEDS ORDERED: MIRA33504 PO (15:53)
--- NOTE | 2016-07-03 15:53 | PD ---
HPI Chief Complaint: Complaint Time Seen by Provider: 14:39 Travel History International Travel<30 days: No Contact w/Intl Traveler<30days: No Traveled to known affect area: No History of Present Illness HPI 80-year-old male presents the emergency department with complaint of penile swelling. Patient recently had a permanent pacemaker and right carotid endarterectomy. He postoperatively had urinary retention and has an indwelling Acosta catheter. Patient states that for the last day his penis has been swollen and slightly painful. He denies any urinary symptoms. Additionally Notes mild constipation on the he's had 2 bowel movements since surgery, continues to pass flatus. No abdominal pain, nausea vomiting. 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) Psychiatric: No Reproductive: No Respiratory: No Tetanus Vaccination: < 5 Years Influenza Vaccination: Yes Past Surgical History Cardiac Surgery: Yes (4 vessel CABG) Coronary Artery Bypass Graft: Yes (X4) Eye Surgery: Yes (LASIX) Pacemaker: Yes Thoracic Surgery: Yes (CABG) Other Surgery: Yes Social History Alcohol Use: Yes (OCC) Tobacco Use: No Substance Use: No Allergies-Medications (Allergen,Severity, Reaction): Coded Allergies: No Known Allergies (Unverified , 07/03/16) Reported Meds & Prescriptions Reported Meds & Active Scripts Active Labetalol (Labetalol HCl) 200 Mg Tab 200 Mg PO TID Terazosin (Terazosin HCl) 5 Mg Cap 5 Mg PO HS Oxycodone-Acetaminophen 5-325 mg Tab 1 Tab PO Q4H PRN Finasteride 5 Mg Tab 5 Mg PO DAILY [id number] HR Patch (Clonidine) 0.2 Mg/24 Hr Patch 1 Patch TD Q7D Aspirin EC (Aspirin) 81 Mg Tabdr 81 Mg PO DAILY Eliquis (Apixaban) 5 Mg Tab 5 Mg PO BID Reported [Super Beta Prostate] 2 Tab PO HS Lisinopril 20 Mg Tab 20 Mg PO BID Centrum Silver Adult 50+ (Multiple Vitamins W/ Minerals) 1 Tab Tab 1 Tab PO DAILY Osteo Bi-Flex Triple Stre (Misc Natural Products) 1 Tab Tab 1 Tab PO AC LUNCH Resveratrol 250 Mg Cap 500 Mg PO DAILY Amlodipine (Amlodipine Besylate) 5 Mg Tab 5 Mg PO DAILY Lipitor (Atorvastatin Calcium) 20 Mg Tab 20 Mg PO HS Review of Systems Except as stated in HPI: all other systems reviewed are Neg Physical Exam Narrative GENERAL: Well-appearing male in no acute distress SKIN: Warm and dry. HEAD: Normocephalic. EYES: No scleral icterus. No injection or drainage. ENT: Mucous membranes pink and moist. NECK: Supple. Right carotid endarterectomy incision clean dry and intact CARDIOVASCULAR: Regular rate and rhythm. No murmur appreciated. RESPIRATORY: No accessory muscle use. Clear to auscultation. Breath sounds equal bilaterally. GASTROINTESTINAL: Abdomen soft, non-tender, nondistended. GENITOURINARY: External external male genitalia with paraphimosis with the foreskin retracted, edematous. This is easily reducible on exam. Indwelling Acosta catheter. MUSCULOSKELETAL: No obvious deformities. No edema. NEUROLOGICAL: Awake and alert. Normal speech. PSYCHIATRIC: Appropriate mood and affect; insight and judgment normal. Data Data Last Documented VS Vital Signs Date Time Temp Pulse Resp B/P Pulse Ox O2 Delivery O2 Flow Rate FiO2 07/03/16 14:42 17 07/03/16 14:33 97.6 66 137/76 97 Room Air Orders Urinalysis - C+S If Indicated (07/03/16 14:39) Labs Laboratory Tests Test 07/03/16 14:50 Urine Color YELLOW Urine Turbidity CLEAR Urine pH 5.5 Urine Specific Parsons 1.006 Urine Protein NEG mg/dL Urine Glucose (UA) NEG mg/dL Urine Ketones NEG mg/dL Urine Occult Blood MOD Urine Nitrite NEG Urine Bilirubin NEG Urine Urobilinogen LESS THAN 2.0 MG/DL Urine Leukocyte Esterase SMALL Urine RBC 24 /hpf Urine WBC 4 /hpf Urine Mucus FEW /lpf Microscopic Urinalysis Comment CULT NOT INDICATED MDM Medical Decision Making Medical Screen Exam Complete: Yes Emergency Medical Condition: Yes Medical Record Reviewed: Yes Differential Diagnosis 80-year-old male here with complaint of penile swelling, constipation. Exam is consistent with paraphimosis that was easily reduced. He did clinically but there is no evidence of obstruction. Narrative Course Urine sample was obtained showing no evidence of infection. His paraphimosis was reduced on exam. Patient was instructed how to reduce foreskin if this recurs as an outpatient. Bowel regimen for home. Diagnosis Primary Impression: Paraphimosis Additional Impression: Constipation Qualified Code: K59.00 - Constipation, unspecified constipation type Referrals: Primary Care Physician as needed Additional Instructions: Bowel regimen as prescribed. Med/Other Pt SpecificInfo: Prescription(s) given Scripts Sennosides (Senna)8.6 Mg Tab8.6 Mg PO BID #30 TAB Ref 0 Prov:Carol Martinez MD 07/03/16 Polyethylene Glycol 3350 Powder (Miralax Powder)17 Gm Powd17 Gm PO BID #1 BOTTLE Ref 0 Mix and dissolve one measuring cap-ful (17 grams) in water or juice. Prov:Carol Martinez MD 07/03/16 Disposition: 01 DISCHARGE HOME Condition: Stable Carol Martinez MD Jul 03, 2016 15:53
[2016-07-03 16:15] VITALS: BP 130/77; TEMP 98
[2016-07-06] MEDS ORDERED: COEN400C PO (09:21)
[2016-07-06] MEDS ORDERED: OMEGCAP19 PO (09:21)
[2016-07-06] MEDS ORDERED: GREE315C2 PO (09:21)
[2016-07-06] MEDS ORDERED: GARL1CAP PO (09:21)
[2016-07-06] MEDS ORDERED: VESI5TAB PO (10:09)
[2016-07-08] MEDS ORDERED: FINA5TAB2 PO (10:29)
[2016-07-12] MEDS ORDERED: BACT800T5 PO (15:34)
[2016-07-22] MEDS ORDERED: TAMS5CAP PO (13:08)
[2016-08-04] MEDS ORDERED: FINA5TAB2 PO (09:50)
== END 2016-07-03 16:15 | disposition home or self-care (01) ==
LOC: NEPE 14:30
DX: N47.2 Paraphimosis (principal); E78.00 Pure hypercholesterolemia, unspecified; I10 Essential (primary) hypertension; K59.00 Constipation, unspecified; Z79.01 Long term (current) use of anticoagulants; Z95.0 Presence of cardiac pacemaker
CPT/HCPCS: 81001; 99283